=== PATIENT | female | born 1970 | race Two or more races ===

== ENCOUNTER 2017-12-06 08:55 | Day surgery (SDC) | payer OTHER, SELFPAY ==
[2017-12-04 08:08] LABS: International Normalized Ratio 0.9; Prothrombin Time (Protime)PT. 12.1 SECONDS (11.7-14.9)
[2017-12-04 08:09] LABS: Partial Thromboplast Time 25.8 Seconds (24.1-36.2)
[2017-12-04 08:21] LABS: Hematocrit 45.3 % (37-47); Mean Corp Hgb Conc 33.1 g/gl (32-36); Mean Corpuscular Hgb 31.3 pg (27.0-32.0); Mean Corpuscular Volume 94.4 fL (81-99); Mean Platelet Vol. 9.9 fl (6.2-12.0); Platelet Count 296 K/mm3 (150-450); RBC Distribution Width CV 13.1 % (11.6-14.6); RBC Distribution Width SD 44.3 fl (35.1-43.9); White Blood Count 7.7 K/mm3 (4.4-11.0)
[2017-12-04 08:22] LABS: AST(SGOT) 18 U/L (15-37); Alanine Aminotransfer ALT/SGPT 31 U/L (13-56); Albumin, Serum 3.8 g/dL (3.2-5.0); Alkaline Phosphatase 73 U/L (45-117); Bilirubin, Direct 0.11 mg/dL (0.00-0.30); Globulin 3.8 g/dL (2.2-4.2); Protein, Total 7.6 g/dL (6.4-8.2)
[2017-12-04 08:24] LABS: Scan Indicated on CBC? Y/N NO
--- NOTE | 2017-12-04 16:45 | EKG12_ITS ---
Test Reason : PREOP Blood Pressure : / mmHG Vent. Rate : 065 BPM Atrial Rate : 065 BPM P-R Int : 196 ms QRS Dur : 092 ms QT Int : 396 ms P-R-T Axes : 029 062 052 degrees QTc Int : 411 ms Normal sinus rhythm Normal ECG Confirmed by NEHEMIAH SILVERIO, YONATHAN ([id number]), fashion editor KIRSTEN MORENO ([id number]) on 12/06/2017 2:03:22 PM Referred By: Dayne Bentley Confirmed By:YONATHAN CERNA MD
[2017-12-06 09:16] VITALS: BP 126/86; PULSE 78; RESP 16; TEMP 36.7; O2SAT 97; BMI 29.7
--- NOTE | 2017-12-06 10:50 | ETH_PTH ---
PATIENT: BRANDIE HURTADO LOC: [facility] [place] U#:[id number] AGE/SX: 47/F ROOM: RE12/06/[address]: Dr. Dayne Bentley MD : 1970 BED: DIS: 12/06/2017 SPEC #: [id number] RECD: 12/06/17 15:51 STATUS: ROCK PAMELA #: [id number] MADIHA: 12/06/17 10:[address]: Dayne Bentley DEPT: SURGICAL PATHOLOGY RECD BY: Lili Newsome ENTERED: 12/09/17 09:32 SP TYPE: ETH TISS OTHR DR: FELA Casiano Tissues: A - Ethmoid sinus, NOS B - Ethmoid sinus, NOS Procedures: Decalcification bone/plaque Surgery Specimen Level IV HEADER OPERATION: Ethmoidectomy, antrostomy, submucous resection inferior turbinates PRE-OP DIAGNOSIS: Chronic ethmoidal sinusitis, incompetence of nasal valve, hypertrophy nasal turbinates TISSUE SUBMITTED: A ? Right sinus contents, B ? Left sinus contents MICROSCOPIC DIAGNOSIS A. Right sinus contents: Fragments of respiratory mucosa with chronic inflammation and bone. B. Left sinus contents: Fragments of respiratory mucosa with chronic inflammation and bone. BUCK:raven 12/12/17 MICROSCOPIC DESCRIPTION Slides are reviewed. GROSS DESCRIPTION A - Received in fixative is one container labeled with the patient's name and designated right sinus contents. The specimen consists of multiple fragments of hemorrhagic soft tissue mixed with fragments of bone that in aggregate measure 5 x 3 x 0.3 cm. The entire specimen is submitted in two cassettes after decalcification. B - Received in fixative is one container labeled with the patient's name and designated left sinus contents. The specimen consists of multiple fragments of hemorrhagic soft tissue mixed with possible fragments of bone that in aggregate measure 2.5 x 1.5 x 0.2 cm. The entire specimen is submitted in one cassette after decalcification. / BUCK:raven 12/09/17 TC:3 CPT: 87419 x2, 35307 x2
[2017-12-06] MEDS: Lidocaine 4% 50 ML Bottle (11:40)
[2017-12-06] MEDS: Oxymetazoline 0.05% 1 SPRAY SPRAY.BTL 15 SPRAY (11:40)
[2017-12-06] MEDS: Bacitracin 500 UNITS/GM PACKET (12:52)
[2017-12-06 13:07] VITALS: BP 124/82; BP 126/86; PULSE 88; RESP 18; TEMP 36.5; O2SAT 94
--- NOTE | 2017-12-06 13:08 | OP.PCM_ITS ---
Problem List (1) Chronic maxillary sinusitis Status: Chronic (2) Chronic ethmoidal sinusitis Status: Chronic (3) Hypertrophy of both inferior nasal turbinates Status: Chronic Report of Operation Date of Procedure: 12/06/17 Pre-Operative Diagnosis: Chronic sinusitis, hypertophy of inferior nasal turbinates Post-Operative Diagnosis: same Surgery/Procedure Performed:: Bilateral endoscopic total ethmoidectomy, maxillary antrostomies, submucous resection of inferior nasal turbinates Description of Surgical Findings:: Cathy is a 47-year-old female presents evaluation of chronic sinusitis and nasal obstruction. Examination showed hypertrophy inferior nasal turbinates as well as narrowing of the nasal valve with some collapse and CT scan confirmed chronic ethmoid and maxillary sinus changes and the above procedure was offered in hopes of alleviation of these complaints and she was eager to proceed. The risks, alternatives, potential benefits, and complications were discussed at length and any questions answered to the patient and/or caregiver's satisfaction. Witnessed informed consent was obtained in the office, and the patient and/or caregiver was agreeable to proceed. Procedure went as follows: The patient was identified in the preoperative holding and brought to the operating room, was placed under general anesthesia and intubated. When appropriate anesthesia was obtained, the navigational head gear was placed and confirmed to be operational in accordance with the underground supervisor's directions. Pledgets soaked in a 50-50 mixture of oxymetazoline and 4% topical lidocaine were placed to decongest the nasal mucosa. These were then removed and beginning on the left side using a 0? endoscope the nasal cavity examined. The insertion of the middle turbinate and uncinate process was then injected with 1% lidocaine with 100,000 epinephrine for a 2 cc total, and a similar injection was then carried on the contralateral side. Upon returning to the left side the middle turbinate was medialized with a Converse elevator. This allowed examination of the maxillary sinus ostia which is then probed with a double ball seeker. The uncinate process process was then outfractured with a J curette and transected with a backbiting forceps. This was then removed with the microdebrider creating a wide maxillary antrostomy. The ethmoid bulla was then entered and total ethmoidectomy was then carried out working posteriorly to anterior. Any polyps, scar, and mucous secretions were removed. Pledgets soaked in oxymetazoline were then placed for hemostasis and attention turned to the contralateral side. Similar procedure and findings were then carried out. Floseal hemostatic agent was then applied. Attention was then turned to the inferior nasal turbinates. Anterior aspect of the inferior turbinate was then injected with 1% lidocaine with 100,000 epinephrine for a total of 1 cc bilaterally and then beginning on the left side a 15 blade scalpel used to create a stab incision in the anterior aspect of the turbinate. A caudal elevator was then used to elevate a submucosal plane. Using the microdebrider the anterior bony intervening submucosal was then removed resulting in excellent reduction of the inferior turbinate. Similar procedure was then completed on the contralateral side. Alva splints were then applied after cutting with bacitracin ointment and secured to the columella with a single 3-0 Prolene suture. An NG tube was then placed to decompress the stomach and the patient returned to anesthesia, revived and extubated having tolerated the procedure well. Type of Anesthesia:: General Anesthesiologist: Dayne Corbin Special Medications: none Specimen's removed: sinus and inferior nasal turbinate contents Drains: none Estimated Blood Loss (mL): 200 mL Fluids Replaced: 1100 mL Grafts/Implants Used: Alva splints - Complications none - Admit VTE Documentation VTE Present on Admission: No VTE Mechan Device Prophylaxis: SCD's VTE Pharm Prophylaxis ordered?: No
--- NOTE | 2017-12-06 13:09 | DCINST_ITS ---
- Discharge Diagnoses Current Active Problems: Current Active and Chronic Problems Chronic maxillary sinusitis (Chronic) Chronic ethmoidal sinusitis (Chronic) Hypertrophy of both inferior nasal turbinates (Chronic) You will use the following diet at home:: Regular Discharge Activity: Return to Normal Activity, May not drive while taking narcotic pain medications. Call your doctor if your incision/area has: Continuous Slow Oozing, Sudden Increased Bleeding Call your doctor if you observe: Fever of 101 or Higher, Uncontrolled pain Allergies/Adverse Reactions: Allergies celecoxib [From Celebrex] Allergy (Verified 12/02/17 14:22) Rash Penicillins [PCN] Allergy (Verified 12/02/17 14:22) Rash sulfamethoxazole [From Bactrim] Allergy (Verified 12/02/17 14:22) Other trimethoprim [From Bactrim] Allergy (Verified 12/02/17 14:22) Other Medications to take at Discharge Oxycodone HCl/Acetaminophen [Percocet 10-325 mg Tablet] 1 tablet PO Q6H PRN PRN 05/13/17 Primary Care Physician: Wing Gomez PA [Primary Care Provider] - Test Results: Test results from this visit will be discussed in further detail at your follow- up appointment, if applicable. Please Follow Up With: Dayne Bentley MD When: 5 days
[2017-12-06 13:15] VITALS: BP 125/79; BP 126/86; PULSE 79; RESP 18; O2SAT 95
[2017-12-06 13:30] VITALS: BP 121/81; BP 126/86; PULSE 79; RESP 18; O2SAT 94
[2017-12-06 13:42] VITALS: BP 126/77; BP 126/86; PULSE 72; RESP 18; TEMP 36.5; O2SAT 95
[2017-12-06 14:12] VITALS: BP 126/81; BP 126/86; PULSE 72; RESP 18; TEMP 37.4; O2SAT 99
== END 2017-12-06 14:23 | disposition home or self-care (01) ==
LOC: SDC 08:55 → AC 08:56
PROVIDERS: Family Provider Physician Assistant; PCP Physician Assistant; Visit Provider Otolaryngology
PROC: (CPT 30140; principal; 2017-12-06 10:35)
DX: J32.0 Chronic maxillary sinusitis (principal); J32.2 Chronic ethmoidal sinusitis; J34.3 Hypertrophy of nasal turbinates; Z87.891 Personal history of nicotine dependence; R42 Dizziness and giddiness; F17.200 Nicotine dependence, unspecified, uncomplicated; J34.89 Other specified disorders of nose and nasal sinuses
CPT/HCPCS: 30140; 31255; 31256; 36415; 80076; 85027; 85610; 85730; 87086; 87088; 88305; 88311; 93005; J7120; J2405

== ENCOUNTER → 2018-02-20 16:30 | Outpatient (CLI) | payer OTHER, SELFPAY ==
--- NOTE | 2018-02-20 16:38 | BI_ITS ---
MAMMOGRAPHY - BILATERAL SCREENING REASON FOR EXAM: Female, 47 years old. Routine annual screening examination. PERTINENT HISTORY: Non-contributory. TECHNIQUE: Digital bilateral breast felix (3D mammographic acquisition) in the CC and MLO projections. 2-D mediolateral oblique (MLO) and craniocaudad (CC) views of both breasts were obtained. CAD: Full Field Digital Mammography with Computer Added Detection was performed. COMPARISON: Comparison is made with prior examination dated July 13, 2015. FINDINGS: Breast Composition: There are scattered areas of fibroglandular density. There are no dominant masses or suspicious calcifications. No other significant abnormalities are identified. There has been no significant change since the prior study. BI/SCREENING MAMM (CAD), BILAT IMPRESSION: Stable bilateral screening mammogram. Yearly follow-up mammogram recommended. (A) ASSESSMENT CATEGORY: BIRADS Category 1: Negative. A letter regarding these results will be sent to the patient by the facility within 30 days. Approximately 10% of breast cancers are not detected by mammography. A normal mammogram should not delay biopsy of a clinically suspicious abnormality. [id number] Electronically Signed: Solo Martinez MD at 7:58 EST Tel [phone], Service support ,
== END ==
PROVIDERS: Family Provider Physician Assistant; PCP Physician Assistant
DX: Z12.31 Encounter for screening mammogram for malignant neoplasm of breast (principal)
CPT/HCPCS: 77063; 77067

== ENCOUNTER 2018-05-08 13:26 | Emergency (ER) | payer OTHER, SELFPAY ==
[2018-05-08 13:27] VITALS: BP 124/79; PULSE 84; RESP 14; TEMP 37.2; O2SAT 98; BMI 29.0
--- NOTE | 2018-05-08 13:45 | RAD_ITS ---
STUDY: X-RAY - LEFT RADIUS AND ULNA REASON FOR EXAM: Female, 47 years old. Pain secondary to a fall. TECHNIQUE: 2 view(s) of the forearm. COMPARISON: None. FINDINGS: There is no demonstrated soft tissue swelling. Normal visualized radius. Normal visualized ulna. RAD/Forearm 2 Views IMPRESSION: Normal x-ray examination of the radius and ulna. Electronically Signed: Solo Martinez MD at 14:18 EST Tel [phone], Service support ,
[2018-05-08] MEDS: Naproxen 500 MG Tablet PO (13:53)
--- NOTE | 2018-05-08 14:55 | ED.DCSUM_ITS ---
- ER Visit Summary Date of Service: 05/08/18 Chief Complaint: Left forearm pain History of Present Illness: The patient is a [address] Gomez in [place]. She reports that she was going down the steps at work today and lost her footing. She slipped and caught herself with her left arm. She hit this on the banister. She reports she has pain that is 8 out of 10 severity. She reports she has left-sided neck pain is 7 out of 10 severity. She is left-hand dominant. Patient reports that she did not fall. No blow to the head or loss of consciousness. No back, shoulder, or hip pain. Physical Examination: Vitals: Stable. Afebrile. Mild tenderness to palpation of the paraspinous muscular on the left and the left trapezius muscle. Neck: No vertebral tenderness. Full ROM without difficulty. Cleared by NEXUS criteria. Back: No vertebral tenderness. General: A&O x 3. NAD. Cardiovascular exam: Regular rate and rhythm, no murmur, rub or gallop. Respiratory exam: Chest nontender. No crepitus. Clear to auscultation bilaterally. No wheezes or stridor. Abdominal exam: Soft, nontender, nondistended, normal bowel sounds. No pain in RUQ or LUQ specifically. No peritoneal signs. Extremity: Contusion over the lateral portion of her distal left forearm. Moderate diffuse translation of her entire forearm. Normal range of motion, but this does increase her pain. 2+ radial pulse. Test Results: Left forearm x-ray is negative. Emergency Department Course and Treatment: Patient was placed in a sling treated with naproxen. Treatment Plan: Patient will be discharged with limited use of her left arm work restrictions. She is in pain management already has opiate-based medications at home. She is instructed to add Tylenol and/or ibuprofen for pain. Follow-up with [facility] care in 1 week for another exam. Return to the emergency department for any worsening symptoms. Disposition: To home in improved and stable condition. Impression: 1. Contusion left forearm. 2. Cervical strain. This note was generated with [employer] software. It may contain incorrect words, spelling, and punctuation that were not noted in review of the chart prior to signing ED Disposition - Plan for ED Patient: Chief Complaint: Upper Extremity Injury Instructions: ED Contusion Upper Ext Referrals: Corporate,[facility] [GROUP OF PHYSICIANS] - 1 Week
== END 2018-05-08 15:27 | disposition home or self-care (01) ==
PROVIDERS: Emergency Provider Emergency Medicine; Family Provider Physician Assistant; PCP Physician Assistant
DX: S50.12XA Contusion of left forearm, initial encounter (principal); S16.1XXA Strain of muscle, fascia and tendon at neck level, initial encounter; W01.198A Fall on same level from slipping, tripping and stumbling with subsequent striking against other object, initial encounter; Y93.9 Activity, unspecified; Y92.9 Unspecified place or not applicable; Z87.891 Personal history of nicotine dependence
CPT/HCPCS: 73090; 99283

== ENCOUNTER → 2018-05-15 16:55 | Outpatient (CLI) | payer OTHER, SELFPAY ==
[2018-05-09 13:17] VITALS: BMI 29.0
--- NOTE | 2018-05-15 18:18 | MRI_ITS ---
STUDY: MRI CERVICAL SPINE WITHOUT CONTRAST REASON FOR EXAM: Female, 47 years old. Patient fell TECHNIQUE: Standardized fat and water weighted pulse sequences were obtained in the sagittal and axial planes. COMPARISON: None FINDINGS: There is no tonsillar ectopia. There is a normal cervicomedullary junction. The cervical spinal cord is of normal morphology and signal intensity with no myelomalacia, contusion or myelopathy. Cervical spine demonstrates a normal lordotic curvature with no acute fractures or dislocations and no abnormal marrow infiltrative processes. The disc spaces are of normal height and signal intensity. The craniovertebral junction is normal. The tectorial membrane is normal. . C2-3: Normal endplates. Normal disc height, signal and morphology. Normal central canal and intervertebral neural foramina. C3-4: Normal endplates. Normal disc height, signal and morphology. Normal central canal and intervertebral neural foramina. C4-5: Normal endplates. Normal disc height, signal and morphology. Normal central canal and intervertebral neural foramina. Mild effacement of the CSF anterior to the cord C5-6: Normal endplates. Normal disc height, signal and morphology. Normal central canal and intervertebral neural foramina. C6-7: Normal endplates. Normal disc height, signal and morphology. Normal central canal and intervertebral neural foramina. C7-T1: Normal endplates. Normal disc height, signal and morphology. Normal central canal and intervertebral neural foramina. . MRI/Spine Cervical (Routine) IMPRESSION: The study is normal with no acute fractures or any abnormal marrow infiltrative processes. There is however mild effacement of the CSF anterior to the cord at the C4-C5 Electronically Signed: Stephon Benavidez MD at 6:39 EST Tel , Service support ,
--- OUTSIDE RECORDS SUMMARY | 2018-07-20 12:08 | XMS RPT_ITS | Summary of Care ---
:1970 Author Organization [facility] Address [address] [place] [address] Phone Care Team Providers Name Role Phone Danny Gomez Primary Care Provider Reason for Visit Reason Comments Other Encounter Details Date Type Department Care Team Description 05/12/2018 Telephone [facility] Danny Gomez PA [facility] [address] [place] [address] [place] [id number] Allergies Active Allergy Reactions Severity Noted Date Comments Celecoxib 07/04/2016 Penicillins 07/04/2016 as of this encounter Medications Prescription Sig. Disp. Refills Start Date End Date Status oxyCODONE-acetaminophen Take 1 tablet by Active 5-325 MG Tab per tablet mouth every 6 hours as needed. varenicline (CHANTIX) Take 1 tablet by 60 tablet 2 01/24/2018 Active 0.5 MG TabIndications: mouth 2 times Cigarette nicotine daily. dependence with nicotine-induced disorder nicotine 21 MG/24HR Place 1 patch on 30 patch 0 01/24/2018 Active Patch 24 HR skin every 24 patchIndications: hours. Cigarette nicotine dependence with nicotine-induced disorder Vortioxetine HBr Take 1 tablet by 90 tablet 0 01/24/2018 Active (TRINTELLIX) 20 MG mouth daily. TabIndications: Anxiety and depression as of this encounter Active Problems Problem Noted Date Impingement syndrome of shoulder, right 06/26/2017 AC (acromioclavicular) arthritis 06/26/2017 Depression Obesity Moderate tobacco use disorder Headache Social History Tobacco Use Types Packs/Day Years Used Date Current Every Day Smoker Cigarettes 0.25 Smokeless Tobacco: Never Used Alcohol Use Drinks/Week oz/Week Comments No Sex Assigned at Date Recorded Not on file as of this encounter Functional Status Functional Status Response Date of Assessment Are you deaf or do you have serious difficulty hearing? No 02/24/2018 Are you blind or do you have serious difficulty seeing, Yes 02/24/2018 even when wearing glasses? Do you have serious difficulty walking or climbing stairs Yes 02/24/2018 (5 years or older)? Do you have difficulty dressing or bathing (5 yrs or Yes 02/24/2018 older)? Because of a physical, mental, or emotional condition, do No 02/24/2018 you have difficulty doing errands alone such as visiting a doctor's office or shopping (5 yrs or older)? Cognitive Status Response Date of Assessment Because of a physical, mental, or emotional condition, do Yes 02/24/2018 you have serious difficulty concentrating, remembering, or making decisions (5 yrs or older)? as of this encounter Plan of Treatment Health Maintenance Due Date Last Done Comments HIV SCREENING DISCUSSION 07/25/1984 TETANUS 07/25/1989 TDAP (ADULT) 07/25/1990 PAP SMEAR DISCUSSION 07/25/1992 LIPID SCREENING 2011 MAMMOGRAM SCREENING DISCUSSION 2011 INFLUENZA VACCINE (#1) 2017 01/22/2017, 12/31/2015, 01/21/2015 as of this encounter
--- OUTSIDE RECORDS SUMMARY | 2018-07-20 12:08 | XMS RPT_ITS | Summary of Care ---
:1970 Author Organization [facility] Address [address] [place] [address] Care Team Providers Name Role Phone Danny Gomez PA-C Primary Care Provider Reason for Visit Reason Comments Pain wrist, arm, back, neck from fall Encounter Details Date Type Department Care Team Description 05/20/[address] [facility] Benny Carreon Encounter for long-term use of opiate analgesic (Primary Dx); Physicians Pain MD See Degeneration of intervertebral disc of cervical region Management [address] [place] [address] [place] [address] [phone] Allergies Active Allergy Reactions Severity Noted Date Comments Adhesive 01/10/2015 Celecoxib 01/10/2015 Penicillins 01/10/2015 Sulfa (Sulfonamide Antibiotics) Other (See Comments) 05/13/2017 Vancomycin 01/10/2015 as of this encounter Medications Medication Sig Dispensed Refills Start Date End Date Status traZODone (DESYREL) 50 Take 50 mg by 0 12/17/2014 Active MG tablet mouth nightly. amitriptyline (ELAVIL) Take 10 mg by 0 06/29/2015 Active 10 MG tablet mouth nightly. buPROPion (WELLBUTRIN Take 150 mg by 0 07/28/2015 Active SR) 150 MG 12 hr tablet mouth 2 (two) times a day. omeprazole (PRILOSEC) 40 0 07/15/2015 Active MG capsule SUMAtriptan (IMITREX) 25 0 06/29/2015 Active MG tablet CHANTIX CONTINUING MONTH 0 07/28/2015 Active BOX 1 mg tablet bisacodyl (DULCOLAX) 5 0 08/06/2015 Active mg EC tablet MAGNESIUM CITRATE 0 08/06/2015 Active solution GAVILYTE-N 420 gram SolR 0 08/06/2015 Active senna-docusate (SENNA-S) Take 1 tablet by 30 tablet 11 08/15/2015 Active 8.6-50 mg mouth daily. MOVANTIK 25 mg Tab 0 08/29/2015 Active nicotine (NICODERM CQ) PLACE 1 PATCH ON 0 02/24/2018 Active 21 mg/24 hr SKIN EVERY 24 HOURS vortioxetine Take 20 mg by 0 01/24/2018 Active (TRINTELLIX) 20 mg mouth . tablet oxyCODONE-acetaminophen Take 1 (one) 120 tablet 0 06/11/2018 Active (PERCOCET) 10-325 mg per tablet by mouth 9 tabletIndications: DDD 4 (four) times a (degenerative disc day 30 days disease), lumbar, m51.36 Start: Degeneration of 06/11/18. intervertebral disc of cervical region ibuprofen (ADVIL,MOTRIN) Take 1 (one) 90 tablet 11 05/02/2018 Active 800 MG tablet tablet (800 mg 0 total) by mouth 3 (three) times a day . tiZANidine (ZANAFLEX) 4 Take 1 (one) 90 capsule 2 05/15/2018 Active MG capsule capsule (4 mg 9 total) by mouth 3 (three) times a day as needed for muscle spasms . cilostazol (PLETAL) 100 Take one(1) 0 07/21/2002 Active MG tablet tablet daily. diltiazem (CARDIZEM CD) Take one(1) 0 07/21/2002 Active 240 MG 24 hr capsule capsule daily. levoFLOXacin (LEVAQUIN) 1 Unspecified 0 Active 500 MG tablet daily . ondansetron (ZOFRAN-ODT) Dissolve 4 mg on 0 05/12/2018 Active 4 MG disintegrating top of tongue tablet every 4 (four) hours as needed . ondansetron (ZOFRAN-ODT) dissolve 1 0 05/12/2018 Active 4 MG disintegrating tablet ON TONGUE tablet every 4 hours if needed for nausea methylPREDNISolone follow package 21 tablet 0 05/20/2018 Active (MEDROL DOSEPACK) 4 mg directions . tablet as of this encounter Active Problems Problem Noted Date Sacroiliac joint pain 12/27/2016 Chronic low back pain without sciatica 09/05/2016 Chronic left hip pain 05/23/2016 Left arm pain 08/05/2015 Cervical radicular pain 08/01/2015 Encounter for long-term use of opiate analgesic 06/13/2015 Coccygodynia 11/19/2014 Tobacco use 11/19/2014 DDD (degenerative disc disease), lumbar 06/29/2014 Degeneration of intervertebral disc of cervical region 10/03/2007 as of this encounter Social History Tobacco Use Types Packs/Day Years Used Date Former Smoker Cigarettes Smokeless Tobacco: Never Used Alcohol Use Drinks/Week oz/Week Comments No 0 Standard drinks or equivalent 0.0 Sex Assigned at Date Recorded Not on file Job Start Date Occupation Industry Not on file Not on file Not on file Travel History Travel Start Travel End No recent travel history available. as of this encounter Last Filed Vital Signs Vital Sign Reading Time Taken Blood Pressure 121/85 05/20/2018 3:15 PM EST Pulse - - Temperature - - Respiratory Rate - - Oxygen Saturation - - Inhaled Oxygen Concentration - - Weight 81.2 kg (179 lb) 05/20/2018 3:15 PM EST Height 167.6 cm (5' 6) 05/20/2018 3:15 PM EST Body Mass Index 28.89 05/20/2018 3:15 PM EST in this encounter Progress Notes Benny Carreon MD - 05/20/2018 3:56 PM EST Nam: Cathy Merino Age: 47 y.o. : 1970 Date: 05/20/2018 Provider: Benny Carreon MD Chief Complaint Patient presents with ??? Pain wrist, arm, back, neck from fall HISTORY OF PRESENT ILLNESS: Cathy Merino is a 47 y.o. female who presents complaining of pain in the neck, shoulders Left and arms Left. Current symptoms include: aching, dull, sharp and throbbing in character; 10/10 in severity. Symptoms have significantly worsened from the previous visit. Exacerbating factors identified by the patient are everything. Patient had fall and injuried her neck , left arm , barely able to lift her head. Analgesia: Patient has inadequate analgesia with the use of current opioid pain medication. Activities of Daily Living: Patient's activities of daily living and psychological functioning haveimproved sufficiently with use of the current opioid medication. Adverse Effects: Patient reports no adverse effects with use of the opioid pain medication. Aberrant Drug-Taking Behavior: Patient has demonstrated no aberrant drug taking behaviors with no deviation from prescription. Allergies Allergen Reactions ??? Adhesive ??? Celecoxib ??? Penicillins ??? Sulfa (Sulfonamide Antibiotics) Other (See Comments) ??? Vancomycin Current Outpatient Medications Medication Sig Dispense Refill ??? amitriptyline (ELAVIL) 10 MG tablet Take 10 mg by mouth nightly. 0 ??? bisacodyl (DULCOLAX) 5 mg EC tablet 0 ??? buPROPion (WELLBUTRIN SR) 150 MG 12 hr tablet Take 150 mg by mouth 2 (two) times a day. 0 ??? CHANTIX CONTINUING MONTH BOX 1 mg tablet 0 ??? cilostazol (PLETAL) 100 MG tablet Take one(1) tablet daily. ??? diltiazem (CARDIZEM CD) 240 MG 24 hr capsule Take one(1) capsule daily. ??? GAVILYTE-N 420 gram SolR 0 ??? ibuprofen (ADVIL,MOTRIN) 800 MG tablet Take 1 (one) tablet (800 mg total) by mouth 3 (three) times a day . 90 tablet 11 ??? levoFLOXacin (LEVAQUIN) 500 MG tablet 1 Unspecified daily . ??? MAGNESIUM CITRATE solution 0 ??? MOVANTIK 25 mg Tab ??? nicotine (NICODERM CQ) 21 mg/[address] 1 PATCH ON SKIN EVERY 24 HOURS 0 ??? omeprazole (PRILOSEC) 40 MG capsule 0 ??? ondansetron (ZOFRAN-ODT) 4 MG disintegrating tablet Dissolve 4 mg on top of tongue every 4 (four) hours as needed . ??? ondansetron (ZOFRAN-ODT) 4 MG disintegrating tablet dissolve 1 tablet ON TONGUE every 4 hours ifneeded for nausea 0 ??? [START ON 06/11/2018] oxyCODONE-acetaminophen (PERCOCET) 10-325 mg per tablet Take 1 (one) tabletby mouth 4 (four) times a day 30 days m51.36 Start: 06/11/18. 120 tablet 0 ??? SUMAtriptan (IMITREX) 25 MG tablet 0 ??? tiZANidine (ZANAFLEX) 4 MG capsule Take 1 (one) capsule (4 mg total) by mouth 3 (three) times a day as needed for muscle spasms . 90 capsule 2 ??? traZODone (DESYREL) 50 MG tablet Take 50 mg by mouth nightly. 0 ??? vortioxetine (TRINTELLIX) 20 mg tablet Take 20 mg by mouth . ??? senna-docusate (SENNA-S) 8.6-50 mg Take 1 tablet by mouth daily. 30 tablet 11 No current facility-administered medications for this visit. Past Medical History: Diagnosis Date ??? DDD (degenerative disc disease) neck and back ??? Miscarriage Single Past Surgical History: Procedure Laterality Date ??? BACK SURGERY ??? CATARACT EXT/ECCE 2009 ??? SECTION, CLASSIC 1993 ??? CHOLECYSTECTOMY 2011 ??? COCCYGECTOMY 11/23/[address] Ly ??? EYE SURGERY Left 2011 to attach left eye and relieve pressure ??? EYE SURGERY Right 2012 eye repair ??? LAMINECTOMY [address] Maher ??? OTHER SURGICAL HISTORY 2007 Fusion with fixation L4-L5-S ??? OTHER SURGICAL HISTORY 10/11/2012 Decompression Laminectomy at L3-L4, with placement of interbody device ??? POSTEROLATERAL FUSION at L3-L4 with removal and reinsertion of pedicle fixation ??? TOE SURGERY Left 08/31/2015 PLATES PLACED IN PHALANGES ??? TONSILLECTOMY 1975 ??? TOTAL ABDOMINAL HYSTERECTOMY W/ BILATERAL SALPINGOOPHORECTOMY 02/21/2010 Social History Socioeconomic History ??? Marital status: Spouse name: Not on file ??? Number of children: Not on file ??? Years of education: Not on file ??? Highest education level: Not on file Social Needs ??? Financial resource strain: Not on file ??? Food insecurity - worry: Not on file ??? Food insecurity - inability: Not on file ??? Transportation needs - medical: Not on file ??? Transportation needs - non-medical: Not on file Occupational History ??? Not on file Tobacco Use ??? Smoking status: Former Smoker Types: Cigarettes ??? Smokeless tobacco: Never Used Substance and Sexual Activity ??? Alcohol use: No Alcohol/week: 0.0 oz ??? Drug use: No ??? Sexual activity: Not on file Other Topics Concern ??? Not on file Social History Narrative ??? Not on file Family History Problem Relation Age of Onset ??? Psoriasis Cousin ??? Thyroid disease Other Aunt ??? Arthritis Other Aunt Social History Substance and Sexual Activity Alcohol Use No ??? Alcohol/week: 0.0 oz Social History Substance and Sexual Activity Drug Use No Social History Tobacco Use Smoking Status Former Smoker ??? Types: Cigarettes Smokeless Tobacco Never Used Review of Systems B/B control:0 - Normal Antalgic Physical Exam Ortho Exam 47 y.o. BP 121/85 Ht 5' 6 Wt 81.2 kg (179 lb) BMI 28.89 kg/m?? SNOMED CT(R) 1. Encounter for long-term use of opiate analgesic ADMISSION STATUSES 2. Degeneration of intervertebral disc of cervical region DEGENERATION OF CERVICAL INTERVERTEBRAL DISC ASSESSMENT/PLAN: needs to find neurologist , I cannot see any problems on XRay will add Medrol Dose-Pack , needs to work through [employer] system Consistent OARRS/NARxCHECK Report Received and Assessed: 05/02/18 Date controlled substance agreement signed: 05/20/18 (AP) Date of last drug screen: 01/06/18 (AP) in this encounter Plan of Treatment Upcoming Encounters Date Type Specialty Care Team Description 06/02/2018 Office Visit Spine Surgery Aries Ly MD [address] [place] [address] 07/03/2018 Office Visit Pain Medicine Benny Carreon MD [address] [facility] [place] [address] Health Maintenance Due Date Last Done Comments PAP SMEAR 07/05/2017 07/05/2014, 07/05/2014, 07/05/2014 SEQUENTIAL INFLUENZA VACCINE (#1) 2017 TETANUS EVERY 10 YR 02/13/2027 02/13/2017, 01/28/2017 as of this encounter Visit Diagnoses Diagnosis Encounter for long-term use of opiate analgesic - Primary Encounter for long-term (current) use of other medications Degeneration of intervertebral disc of cervical region in this encounter (Home) [place] [address] as of this encounter Advance Directives Patient has advance care planning documents on file. For more information, please contact:[address] [phone]
--- OUTSIDE RECORDS SUMMARY | 2018-07-20 12:08 | XMS RPT_ITS | Summary of Care ---
:1970 Author Organization [facility] Address [address] [place] [address] Phone Care Team Providers Name Role Phone Danny Gomez Primary Care Provider Reason for Visit Reason Comments Fall Pt presents with left arm pain s/p fall on , states she was seen after the fall, wearing sling at arrival. Also c/o headache. States she is already under pain management as well. Encounter Details Date Type Department Care Team Description 05/12/2018 Emergency [facility] Emergency Roverto Mckay MD Department [address] [facility] [address] [place] [address] [place] [address] [phone] Allergies Active Allergy Reactions Severity Noted Date [...] MG mouth daily. TabIndications: Anxiety and depression ondansetron 4 MG Tab Take 1 tablet by 10 tablet 0 05/12/2018 Active Dispersible tablet mouth every 4 hours as needed for Nausea. Place on tongue as of this encounter Active Problems Problem Noted Date Impingement syndrome of shoulder, right 06/26/2017 AC (acromioclavicular) arthritis 06/26/2017 Depression Obesity Moderate tobacco use disorder Headache Social History Tobacco Use Types Packs/Day Years Used Date Current Every Day Smoker Cigarettes 0.25 Smokeless Tobacco: Never Used Alcohol Use Drinks/Week oz/Week Comments No Sex Assigned at Date Recorded Not on file as of this encounter Last Filed Vital Signs Vital Sign Reading Time Taken Blood Pressure 124/79 05/12/2018 10:15 AM EST Pulse 78 05/12/2018 10:15 AM EST Temperature 35.7 ??C (96.2 ??F) 05/12/2018 10:15 AM EST Respiratory Rate 16 05/12/2018 10:15 AM EST Oxygen Saturation 97% 05/12/2018 10:15 AM EST Inhaled Oxygen Concentration - - Weight - - Height 167.6 cm (5' 6) 05/12/2018 10:17 AM EST Body Mass Index - - in this encounter Functional Status Functional Status Response [...] yrs or older)? as of this encounter Discharge Instructions Roverto Mckay MD - 05/12/2018Call [facility] as soon as you leave the ER. . I spoke with him and they are expecting your call. They have already started the process to get your MRI ordered. It is very important that you follow-up with them and get your testing performed. As you know, I cannot change or add to your pain medications. He will have to speak your primary care provider, the providers at [facility], or your pain management doctor about that. The following attachments cannot be sent through Care Everywhere.R.I.C.E. ([place])Neck Sprain or Strain ([place])in this encounter Plan of Treatment Health Maintenance Due Date Last Done Comments HIV SCREENING DISCUSSION 07/25/1984 TETANUS 07/25/1989 TDAP (ADULT) 07/25/1990 PAP SMEAR DISCUSSION 07/25/1992 LIPID SCREENING 2011 MAMMOGRAM SCREENING DISCUSSION 2011 INFLUENZA VACCINE (#1) 2017 01/22/2017, 12/31/2015, 01/21/2015 as of this encounter Visit Diagnoses Diagnosis Left arm pain - Primary Pain in limb Strain of cervical portion of left trapezius muscle Fall, subsequent encounter Administered Medications Inactive Administered Medications - up to 3 most recent administrations Medication Order MAR Action Action Date Dose Rate Site ondansetron (ZOFRAN-ODT) disintegrating Given 05/12/2018 11:11 EST 4 mg tablet 4 mg 4 mg, Oral, ONCE, 1 dose, 05/12/18 at 1145 in this encounter
--- OUTSIDE RECORDS SUMMARY | 2018-07-20 12:08 | XMS RPT_ITS | Summary of Care ---
:1970 Author Organization [facility] Address [address] [place] [address] Care Team Providers Name Role Phone Danny Gomez PA-C Primary Care Provider Reason for Visit Reason Comments Back Pain Neck Pain Encounter Details Date Type Department Care Team Description 03/11/2018 Office Visit [facility] Benny Carreon Encounter for long-term use of opiate analgesic (Primary Dx); Physicians Annette Cui MD DDD (degenerative disc disease), lumbar; Management [address] [place] [address] Degeneration of intervertebral disc of cervical region [address] [place] [id number] [place] [id number] [phone] Allergies Active Allergy Reactions Severity Noted Date Comments Adhesive 01/10/2015 Celecoxib 01/10/2015 Penicillins 01/10/2015 Sulfa (Sulfonamide Antibiotics) Other (See Comments) 05/13/2017 Vancomycin 01/10/2015 as of this encounter Medications Prescription Sig. Disp. Refills Start Date End Date Status traZODone (DESYREL) Take 50 mg by 0 12/17/2014 Active 50 MG tablet mouth nightly. amitriptyline Take 10 mg by 0 06/29/2015 Active (ELAVIL) 10 MG mouth nightly. tablet buPROPion Take 150 mg by 0 07/28/2015 Active (WELLBUTRIN SR) 150 mouth 2 (two) MG 12 hr tablet times a day. omeprazole 0 07/15/2015 Active (PRILOSEC) 40 MG capsule SUMAtriptan 0 06/29/2015 Active (IMITREX) 25 MG tablet CHANTIX CONTINUING 0 07/28/2015 Active MONTH BOX 1 mg tablet bisacodyl (DULCOLAX) 0 08/06/2015 Active 5 mg EC tablet MAGNESIUM CITRATE 0 08/06/2015 Active solution GAVILYTE-N 420 gram 0 08/06/2015 Active SolR senna-docusate Take 1 tablet 30 tablet 11 08/15/2015 Active (SENNA-S) 8.6-50 mg by mouth daily. MOVANTIK 25 mg Tab 08/29/2015 Active ibuprofen Take 1 (one) 90 tablet 11 11/07/2016 Active (ADVIL,MOTRIN) 800 tablet (800 mg MG tablet total) by mouth 3 (three) times a day. tiZANidine Take 1 (one) 90 capsule 11 11/07/2016 Active (ZANAFLEX) 4 MG capsule (4 mg capsule total) by mouth 3 (three) times a day. levoFLOXacin Levaquin 500 mg tablet Active (LEVAQUIN) 500 MG Take 1 tablet every 24 hours by oral route for 21 days. tablet tiZANidine 4 mg. 05/13/2017 Active (ZANAFLEX) 4 MG tablet nicotine (NICODERM PLACE 1 PATCH 0 02/24/2018 Active CQ) 21 mg/24 hr ON SKIN EVERY 24 HOURS vortioxetine Take 20 mg by 01/24/2018 Active (TRINTELLIX) 20 mg mouth . tablet oxyCODONE-acetaminop Take 1 (one) 120 tablet 0 04/12/2018 Active hen (PERCOCET) tablet by 9 10-325 mg per mouth 4 (four) tabletIndications: times a day 30 DDD (degenerative days Start: disc disease), 04/12/18. lumbar, Degeneration of intervertebral disc of cervical region oxyCODONE-acetaminop Take 1 (one) 120 tablet 0 02/11/2018 Discontinued hen (PERCOCET) tablet by 8 10-325 mg per mouth 4 (four) tabletIndications: times a day 30 DDD (degenerative days. disc disease), lumbar, Degeneration of intervertebral disc of cervical region oxyCODONE-acetaminop Take 1 (one) 120 tablet 0 03/13/2018 Discontinued hen (PERCOCET) tablet by 8 10-325 mg per mouth 4 (four) tabletIndications: times a day 30 DDD (degenerative days Start: disc disease), 11/15/18. lumbar, Degeneration of intervertebral disc of cervical region as of this encounter Active Problems Problem Noted Date Sacroiliac joint pain 12/27/2016 Chronic low back pain without sciatica 09/05/2016 Chronic left hip pain 05/23/2016 Left arm pain 08/05/2015 Cervical radicular pain 08/01/2015 Encounter for long-term use of opiate analgesic 06/13/2015 Coccygodynia 11/19/2014 Tobacco use 11/19/2014 DDD (degenerative disc disease), lumbar 06/29/2014 Degeneration of intervertebral disc of cervical region 10/03/2007 Social History Tobacco Use Types Packs/Day Years Used Date Former Smoker Cigarettes Smokeless Tobacco: Never Used Alcohol Use Drinks/Week oz/Week Comments No 0 Standard drinks or equivalent 0.0 Sex Assigned at Date Recorded Not on file as of this encounter Last Filed Vital Signs Vital Sign Reading Time Taken Blood Pressure 130/77 03/11/2018 7:58 AM EST Pulse - - Temperature - - Respiratory Rate - - Oxygen Saturation - - Inhaled Oxygen Concentration - - Weight 81.2 kg (179 lb) 03/11/2018 7:58 AM EST Height 167.6 cm (5' 6) 03/11/2018 7:58 AM EST Body Mass Index 28.89 03/11/2018 7:58 AM EST in this encounter Progress Notes Benny Carreon MD - 03/11/2018 8:10 AM ESTFormatting of this note may be different from the original. Nam: Cathy Merino Age: 47 y.o. : 1970 Date: 03/11/2018 Provider: Benny Carreon MD Chief Complaint Patient presents with ??? Back Pain ??? Neck Pain HISTORY OF PRESENT ILLNESS: Cathy Merino is a 47 y.o. female who presents complaining of pain in the neck, shoulders Bilateral, low back, legs Bilateral and feet Bilateral. Current symptoms include: aching and tingling in character; 7/10 in severity. Symptoms have not changed from the previous visit. Exacerbating factors i dentified by the patient are bending backwards, bending forwards, increased intrathoracic pressure (cough, sneeze, etc.), standing and walking. Asking to order MRI L/spine. Analgesia: Patient has adequate analgesia with the use of current opioid [...] Other (See Comments) ??? Vancomycin Current Outpatient Prescriptions Medication Sig Dispense Refill ??? vortioxetine (TRINTELLIX) 20 mg tablet Take 20 mg by mouth . ??? amitriptyline (ELAVIL) 10 MG tablet Take 10 mg by mouth nightly. 0 ??? bisacodyl (DULCOLAX) 5 mg EC tablet 0 ??? buPROPion (WELLBUTRIN SR) 150 MG 12 hr tablet Take 150 mg by mouth 2 (two) times a day. 0 ??? CHANTIX CONTINUING MONTH BOX 1 mg tablet 0 ??? GAVILYTE-N 420 gram SolR 0 ??? ibuprofen (ADVIL,MOTRIN) 800 MG tablet Take 1 (one) tablet (800 mg total) by mouth 3 (three) times a day. 90 tablet 11 ??? levoFLOXacin (LEVAQUIN) 500 MG tablet Levaquin 500 mg tablet Take 1 tablet every 24 hours by oral route for 21 days. ??? MAGNESIUM CITRATE solution 0 ??? MOVANTIK 25 mg Tab ??? nicotine (NICODERM CQ) 21 mg/[address] 1 PATCH ON SKIN EVERY 24 HOURS 0 ??? omeprazole (PRILOSEC) 40 MG capsule 0 ??? [START ON 04/12/2018] oxyCODONE-acetaminophen (PERCOCET) 10-325 mg per tablet Take 1 (one) tablet by mouth 4 (four) times a day 30 days Start: 04/12/18. 120 tablet 0 ??? senna-docusate (SENNA-S) 8.6-50 mg Take 1 tablet by mouth daily. 30 tablet 11 ??? SUMAtriptan (IMITREX) 25 MG tablet 0 ??? tiZANidine (ZANAFLEX) 4 MG capsule Take 1 (one) capsule (4 mg total) by mouth 3 (three) times a day. 90 capsule 11 ??? tiZANidine (ZANAFLEX) 4 MG tablet 4 mg. ??? traZODone (DESYREL) 50 MG tablet Take 50 mg by mouth nightly. 0 No current facility-administered medications for this visit. [...] per Dr. Maher ??? OTHER SURGICAL HISTORY 2006 Fusion with fixation L4-L5-S ??? OTHER SURGICAL HISTORY 10/11/2012 Decompression Laminectomy at L3-L4, with placement of interbody device ??? POSTEROLATERAL FUSION at L3-L4 with removal and reinsertion of pedicle fixation ??? TOE SURGERY Left 08/31/2015 PLATES PLACED IN PHALANGES ??? TONSILLECTOMY 1974 ??? TOTAL ABDOMINAL HYSTERECTOMY W/ BILATERAL SALPINGOOPHORECTOMY 02/21/2010 Social History Social History ??? Marital status: Spouse name: N/A ??? Number of children: N/A ??? Years of education: N/A Occupational History ??? Not on file. Social History Main Topics ??? Smoking status: Former Smoker Types: Cigarettes ??? Smokeless tobacco: Never Used ??? Alcohol use No ??? Drug use: No ??? Sexual activity: Not on file Other Topics Concern ??? Not on file Social History Narrative ??? No narrative on file Family History Problem Relation Age of Onset ??? Psoriasis Cousin ??? Thyroid disease Other Aunt ??? Arthritis Other Aunt History Alcohol Use No History Drug Use No History Smoking Status ??? Former Smoker ??? Types: Cigarettes Smokeless Tobacco ??? Never Used Review of Systems Constitutional: Negative for activity change and appetite change. HENT: Negative for dental problem, hearing loss, sinus pressure and trouble swallowing. Eyes: Negative for visual disturbance. Respiratory: Negative for cough. Cardiovascular: Negative for chest pain and leg swelling. Gastrointestinal: Negative for constipation. Musculoskeletal: Positive for arthralgias, back pain and gait problem. Psychiatric/Behavioral: The patient is nervous/anxious. B/B control:0 - Normal Walking normally Physical Exam Constitutional: She is oriented to person, place, and time. She appears well- developed and well-nourished. HENT: Head: Normocephalic and atraumatic. Neck: Spinous process tenderness and muscular tenderness present. Neck rigidity present. Decreased range of motion present. Cardiovascular: Normal rate and regular rhythm. Musculoskeletal: She exhibits tenderness. Neurological: She is alert and oriented to person, place, and time. Skin: Skin is warm and dry. Psychiatric: Her behavior is normal. Judgment and thought content normal. Ortho Exam 47 y.o. BP 130/77 Ht 5' 6 Wt 81.2 kg (179 lb) BMI 28.89 kg/m?? SNOMED CT(R) 1. Encounter for long-term use of opiate analgesic ADMISSION STATUSES 2. DDD (degenerative disc disease), lumbar DEGENERATION OF LUMBAR INTERVERTEBRAL DISC oxyCODONE-acetaminophen (PERCOCET) 10-325 mg per tablet DISCONTINUED: oxyCODONE-acetaminophen (PERCOCET) 10-325 mg per tablet 3. Degeneration of intervertebral disc of cervical region DEGENERATION OF CERVICAL INTERVERTEBRAL DISC oxyCODONE-acetaminophen (PERCOCET) 10-325 mg per tablet DISCONTINUED: oxyCODONE-acetaminophen (PERCOCET) 10-325 mg per tablet ASSESSMENT/PLAN: meds refill, f/u 2 month , XRay L/spine Consistent OARRS/NARxCHECK Report Received and Assessed: 03/11/18 Date controlled substance agreement signed: 07/11/17 (AP) Date of last drug screen: 01/06/18 (AP) in this encounter Plan of Treatment Upcoming Encounters Date Type Specialty Care Team Description 04/04/2018 Office Visit Dentistry 05/09/2018 Office Visit Pain Medicine ProBenny gonzales MD [facility] [place] [address] [phone] Health Maintenance Due Date Last Done Comments PAP SMEAR 07/05/2017 07/05/2014, 07/05/2014, 07/05/2014 SEQUENTIAL INFLUENZA VACCINE (#1) 2017 TETANUS EVERY 10 YR 02/13/2027 02/13/2017, 01/28/2017 as of this encounter Visit Diagnoses Diagnosis Encounter for long-term use of opiate analgesic - Primary Encounter for long-term (current) use of other medications DDD (degenerative disc disease), lumbar Degeneration of lumbar or lumbosacral intervertebral disc Degeneration of intervertebral disc of cervical region
--- OUTSIDE RECORDS SUMMARY | 2018-07-20 12:09 | XMS RPT_ITS ---
:1970 Author Organization OHIP Care Team Providers Name Role Phone K, RODOLFO POWELL Attending Unavailable JASON, KARLOS SALBADOR Primary Care Unavailable PROK, RODOLFO POWELL Attending Unavailable JASON, KARLOS SALBADOR Primary Care Unavailable PROK, RODOLFO POWELL Attending Unavailable JASON, KARLOS SALBADOR Primary Care Unavailable PROK, RODOLFO POWELL Attending Unavailable JASON, KARLOS SALBADOR Primary Care Unavailable PROK, RODOLFO POWELL Attending Unavailable JASON, KARLOS SALBADOR Primary Care Unavailable PROK, RODOLFO POWELL Attending Unavailable JASON, KARLOS SALBADOR Primary Care Unavailable PROK, RODOLFO POWELL Attending Unavailable JASON, KARLOS SALBADOR Primary Care Unavailable PROK, RODOLFO POWELL Attending Unavailable PROK, RODOLFO POWELL Referring Unavailable JASON, KARLOS SALBADOR Primary Care Unavailable LANDON ESCOBEDO Attending Unavailable LANDON ESCOBEDO Referring Unavailable JASON, KARLOS SALBADOR Primary Care Unavailable PROK, RODOLFO POWELL Attending Unavailable JASON, KARLOS SALBADOR Primary Care Unavailable PROK, RODOLFO POWELL Attending Unavailable JASON, KARLOS SALBADOR Primary Care Unavailable JASONKARLOS Attending Unavailable SELF, SELF Referring Unavailable NOEMY BALTAZAR Attending Unavailable DALE OLIVEROS Attending Unavailable JASON, KARLOS Referring Unavailable DALE OLIVEROS Attending Unavailable DALE OLIVEROS Referring Unavailable ZURI WARE Attending Unavailable NAMITA PASCAL Attending Unavailable SELF, SELF Referring Unavailable JASON, KARLOS O Attending Unavailable SELF, SELF Referring Unavailable Jason, Wing Primary Care Unavailable Carlitos Gudino Attending Unavailable Bereket Ash Attending Unavailable Jason, Wing Referring Unavailable Trey Cerna Attending Unavailable Bentley, Dayne Referring Unavailable Jason, Wing Primary Care Unavailable TIFFANI PEREZ Consulting Unavailable TIFFANI PEREZ Attending Unavailable Bentley, Dayne Attending Unavailable Bentley, Dayne Referring Unavailable Jasno, Wing Primary Care Unavailable Bereket Ash Attending Unavailable Mihir, Bereket Referring Unavailable Jason, Wing Primary Care Unavailable Bereket Ash Attending Unavailable Mihir, Bereket Referring Unavailable Jason, Wing Primary Care Unavailable Mihir Bereket Attending Unavailable Jason, Wing Referring Unavailable ASSESSMENT, HEALTH RISK Attending Unavailable ASSESSMENT, HEALTH RISK Referring Unavailable Jason, Wing Primary Care Unavailable PROBLEMS PROBLEMS DATE TYPE CONDITION / CODE ATTENDING STATUS SOURCE 05/20/2018 Ad[facility] [place] [facility] LANDON ORTEZ Three M54.6(ICD-10) Repository 05/20/2018 Unknown S16.1XXA - Strain of Bereket Ash Active [facility] muscle, fascia and Community tendon at neck Hospital level, initial Repository encounter / S16.1XXA(ICD-10) 05/12/2018 Active Pain in left arm / DELANEY, Active [facility] M79.602(ICD-10) [facility] ([place] Repository 05/12/2018 Active Strain of muscle, DELANEY, Active [facility] fascia and tendon at [facility] System ([place]) neck level, initial Repository encounter / S16.1XXA(ICD-10) 05/12/2018 Active Unspecified fall, DELANEY, Active [facility] subsequent encounter NOEMY [facility] ([place]) / W19.XXXD(ICD-10) Repository 05/13/2018 Unknown M79.632 - Pain in Shahab, Active [place] left forearm / [facility] M79.632(ICD-10) Hospital Repository 02/24/2018 Admitting Follow-up / 145() KARLOS GOMEZ Active [facility] ([place]) Repository 12/06/2017 Unknown J32.2 - Chronic Bentley, Dayne Active [facility] ethmoidal sinusitis Community / J32.2(ICD-10) Hospital Repository 12/06/2017 Unknown J32.0 - Chronic Bentley, Dayne Active [facility] maxillary sinusitis Community / J32.0(ICD-10) Hospital Repository 12/06/2017 Unknown J34.3 - Hypertrophy Bentley, Dayne Active [place] of nasal turbinates Community / J34.3(ICD-10) Hospital Repository 01/31/2018 Unknown Z01.810 - Encounter [employer], Active [place] for preprocedural [facility] examination / Repository Z01.810(ICD-10) 11/03/2017 Admitting [facility] [place] unspecified / ZURI E System ([place]) J01.90(ICD-10) Repository 11/03/2017 Admitting Allergic rhinitis [facility], [facility] Diagnosis due to pollen / ZURI E [facility] ([place]) J30.1(ICD-10) Repository 11/03/2017 Admitting Acute bronchitis, JEANIE, Active [facility] Diagnosis unspecified / ZURI E [place] ([place] J20.9(ICD-10) Repository 09/28/2017 Admitting Bronchitis, not NA [facility] specified as acute System ([place]) or chronic / Repository J40(ICD-10) 06/13/2015 Admitting USP (current) PROKRODOLFO [facility] diagnosis use of opiate SHERRY Morris analgesic / Repository Z79.891(ICD-10) 01/10/2015 Admitting Other intervertebral PRORODOLFO [facility] diagnosis disc degeneration, SHERRY Morris lumbar region / Repository M51.36(ICD-10) 01/10/2015 Admitting Other cervical disc PRORODOLFO [facility] diagnosis degeneration, SHERRY Morris unspecified cervical Repository region / M50.30(ICD-10) 06/26/2017 Admitting Pain in right DALE OLIVEROS [facility] Diagnosis shoulder / L System ([place]) M25.511(ICD-10) Repository PROCEDURES PROCEDURES No Procedure Records FoundRESULTS RESULTS XR THORACIC SPINE 2 Observed: 05/20/2018 Status: F Source: [facility] 2:13 PM THREE REPOSITORY Order Comment: Reason for exam?:Fell down steps/ twisted back/ pain between scapulas/ numbness/ strange skin sensation on left side best films due to pain/ unable raise arms Injury/Trauma or Illness?:Injury/Trauma How long have you had these symptoms (acute/chronic)?:Acute History of cancer?:no Surgeries, chemotherapy, or radiation?:yes lumbar Type of Exam?:Ongoing Mechanism of injury?:fell down steps on 08 of may EXAMINATION: THORACIC SPINE 3 VIEWS COMPARISON: Chest radiograph performed 11/03/2017. HISTORY: Dx: M54.6 (Bilateral thoracic back pain, unspecified chronicity). FINDINGS: The vertebral body heights are well-maintained and aligned with no fracture, subluxation, or dislocation. There is mild spur formation involving the [id number] thoracic vertebral bodies with mild disc space narrowing evident. There is no significant degenerative change in the included lower cervical spine. The included ribs are intact. The included lungs are clear. The cardiac silhouette is not enlarged. IMPRESSION 1. Only mild degenerative spondylosis at the klp-wv-bbjhy thoracic spine. DP/M[employer] App Workstation ID: [id number] Dictated by: SHANNAN DIAZ on SatMay 20, 2018 3:44:15 PM EST Transcribed by: MAIA BROOKS IN CARMENI SPEECHQ on SatMay 20, 2018 4:03:33 PM EST Finalized by: SHANNAN DIAZ on SatMay 20, 2018 4:13:09 PM EST XR LUMBAR SPINE 2-3 Observed: 05/20/2018 Status: F Source: [facility] (STANDARD[facility] 2:07 PM THREE REPOSITORY Order Comment: Reason for exam?:Fell down steps/ twisted back/ pain between scapulas/ numbness/ strange skin sensation on left side pain down left posterior hip and leg/ numbness Injury/Trauma or Illness?:Injury/Trauma How long have you had these symptoms (acute/chronic)?:Acute History of cancer?:no Surgeries, chemotherapy, or radiation?:yes lumbar Type of Exam?:Initial Mechanism of injury?:fell down steps/ hit left side EXAMINATION: LUMBAR SPINE 4 VIEWS COMPARISON: 12/27/2016. HISTORY: Dx: M51.36 (DDD (degenerative disc disease), lumbar) FINDINGS: There has been decompressive laminectomy at L4 and L5. Posterior fusion is achieved from L3 through S1 via bilateral pedicle screws at L3, L4, and S1. There is no evidence of screw fracture, loosening, or other complication of hardware placement. Alignment appears anatomic on the lateral view. Degenerative spondylosis is seen throughout the lumbar spine. This appears to have progressed at L2-L3 since the prior study. There is mild dextroconvex scoliosis. The surrounding soft tissues are otherwise unremarkable. IMPRESSION: 1. Decompressive laminectomy with posterior fusion from L3 through S1. 2. No complication of hardware placement. 3. Anatomic alignment. 4. Worsening degenerative disc disease at L2-L3. GERMAN/mayur Workstation ID: [id number] Dictated by: SHANNAN DIAZ on SatMay 20, 2018 4:06:23 PM EST Transcribed by: DORIS WILSON on SatMay 20, 2018 4:07:13 PM EST Finalized by: SHANNAN DIAZ on SatMay 20, 2018 4:13:13 PM EST URGENT CARE VISIT Observed: 05/16/2018 Status: F Source: [place] REPORT 7:04 PM [facility] REPOSITORY [address] [place] [address] OFFICE VISIT Date of Service: 05/16/18 MR#: [id number] Acct: [id number] Name: BRANDIE HURTADO Rep #: [id number] : 1970 Provider: Bereket CHAHAL Age/Sex: 47/F Location[place] [facility] Status: Signed Intake Vital Signs05/16/18 Height 5 ft 6 in Intake Visit Reasons: [facility]/ SHOULDER Accompanied by: self Is patient in pain?: Yes Pain scale (1-10): 10 Allergies celecoxib [From Celebrex] Allergy (Verified 05/16/18 13:32) Rash Penicillins [PCN] Allergy (Verified 05/16/18 13:32) Rash sulfamethoxazole [From Bactrim] Allergy (Verified 05/16/18 13:32) Other trimethoprim [From Bactrim] Allergy (Verified 05/16/18 13:32) Other Medications Oxycodone HCl/Acetaminophen [Percocet 10-325 mg Tablet] 1 tab PO Q6H PRN PRN 7 Days #30 tab 12/06/17 [Rx Confirmed 05/16/18] PFSH Surgical History History of back surgery (Resolved) History of cholecystectomy (Resolved) History of nasal surgery (Resolved) Family History Grandmother Cancer Uknown Aunt Cancer Ovarian Social History Smoking Status: Former smoker HPI HPI Details: BRANDIE HURTADO, is a 47 F who presents to the office today for follow-up of a work-related injury which occurred on 05/08/2018. Patient was seen on that day at [facility] ED and then the next day here in this office on 05/09/2018 and found to have a cervical strain as well as left arm contusion. Form C9 was filled out for a MRI of the cervical spine as well as left shoulder due to patient's complaint of left arm numbness/tingling as well as inability to complete full range of motion with left arm at the shoulder joint. Patient did receive a MRI of the cervical spine with the following interpretation the study is normal with no acute fractures or any abnormal marrow infiltrative processes. There is however mild effacement of the CSF anterior to the cord at the C4-C5 . The patient continues to complain of pain to her neck which radiates down to the tips of her left fingers which she describes as feeling like ice water being poured over her hand. She rates this pain a 6-8 out of 10 at worst which is irritated with movement of the left arm. Patient also did report to an area ER after her appointment here for complaint of worsening headache. Patient states that headache has since improved despite the use of no medications given to her at the ED. Patient continues to deny striking her head or any kind of wound on her head from the incident. She also continues to wear the arm sling when possible. No other associated symptoms or alleviating/aggravating factors. ROS Const Constitutional: Positive for other (Full review of systems completed with pertinent findings in the HPI.) Exam Const General: cooperative, healthy appearing Neck Neck: normal visual inspection, no lymphadenopathy, full ROM Resp Effort AND Inspection: normal respiratory effort Auscultation: Bilateral: Clear to Auscultation Cardio Palpation: normal PMI Rate: regular rate Rhythm: regular rhythm Musc Musculoskeletal: Yes joint tenderness Cervical Spine: normal cervical lordosis and cervical ROM normal Thoracic/Lumbar Spine: thoracic and lumbar spine normal to inspection Skin General: no rashes or lesions noted Neuro General: alert, CN's II-XI intact bilaterally, oriented x3 Gait: normal gait Motor: muscle tone normal throughout, strength 5/5 throughout Sensory Exam: no sensory deficits noted Extrem General: normal capillary refill, normal exam except as noted, no joint enlargement Other: Contusion left mid forearm with normal distal pulses and sensation. Able to touch the top of her head with her left hand however refuses to do Apley scratch test due to pain. Psych Appearance: grossly normal Mental Status: mental status grossly normal Mood: anxious mood Affect: anxious affect Other: Patient visibly anxious or agitated as she will not sit for the exam in the room stating that her pain is made worse when she sits. Assessment AND Plan Problems 1. Contusion of left forearm, initial encounter S50.12XA 2. Acute strain of neck muscle, initial encounter S16.1XXA Plan Due to ongoing complaints of neurological type pain and some abnormal findings on the cervical MRI patient will be referred to neurology for further evaluation and treatment. Form C9 filled out referring patient to neurologist. [employer] 14 filled out releasing patient back to work today with restrictions of no use of the left arm for work purposes. Patient advised to continue with medications as prescribed to her by her pain management physician for pain. She is also been advised of potential red flags including but not limited to immobility of the left arm, worsening pain or lasting numbness and when appropriate to report to the ED. Patient advised to follow-up here on 05/27/2018 unless she is able to get into the neurologist before that. All questions addressed at length with the patient. Patient verbalized understanding and agreement with all the above. Coding Level of Care Code Off vis,est,level 4 Diagnoses Contusion of left forearm, initial encounter S50.12XA Acute strain of neck muscle, initial encounter S16.1XXA Encounter type: initial encounter 05/16/18 1904 <Electronically signed by Bereket CHAHAL> Date Bereket CHAHAL Cosigner Signature: Date (if applicable) CC: SPINE CERVICAL Observed: 05/15/2018 Status: F Source: [place] (ROUTINE) 6:18 PM [facility] REPOSITORY [facility] Imaging Services [address] [place] [address] Spine Cervical (Routine) MR#: [id number] Acct: [id number] Name: BRANDIE HURTADO Rep #: [id number] : 1970 F 47 From: Stephon Benavidez MD PCP: FELA Casiano Status: REG CLI Study: Spine Cervical (Routine) Date of Exam: 05/15/18 Exam# [id number] Ordering Dr: Buster Moreno STUDY: MRI CERVICAL SPINE WITHOUT CONTRAST REASON FOR EXAM: Female, 47 years old. Patient fell TECHNIQUE: Standardized fat and water weighted pulse sequences were obtained in the sagittal and axial planes. COMPARISON: None FINDINGS: There is no tonsillar ectopia. There is a normal cervicomedullary junction. The cervical spinal cord is of normal morphology and signal intensity with no myelomalacia, contusion or myelopathy. Cervical spine demonstrates a normal lordotic curvature with no acute fractures or dislocations and no abnormal marrow infiltrative processes. The disc spaces are of normal height and signal intensity. The craniovertebral junction is normal. The tectorial membrane is normal. . C2-3: Normal endplates. Normal disc height, signal and morphology. Normal central canal and intervertebral neural foramina. C3-4: Normal endplates. Normal disc height, signal and morphology. Normal central canal and intervertebral neural foramina. C4-5: Normal endplates. Normal disc height, signal and morphology. Normal central canal and intervertebral neural foramina. Mild effacement of the CSF anterior to the cord C5-6: Normal endplates. Normal disc height, signal and morphology. Normal central canal and intervertebral neural foramina. C6-7: Normal endplates. Normal disc height, signal and morphology. Normal central canal and intervertebral neural foramina. C7-T1: Normal endplates. Normal disc height, signal and morphology. Normal central canal and intervertebral neural foramina. . MRI/Spine Cervical (Routine) IMPRESSION: The study is normal with no acute fractures or any abnormal marrow infiltrative processes. There is however mild effacement of the CSF anterior to the cord at the C4-C5 Electronically Signed: Stephon Benavidez MD at 6:39 EST Tel , Service support , CC: FELA Gomez; Buster CHAHAL Meters Superintendent: Signed URGENT CARE VISIT Observed: 05/09/2018 Status: F Source: [place] REPORT 2:10 PM [facility] REPOSIT[facility] [address] [place] [address] [address] [place] [address] OFFICE VISIT Date of Service: 05/09/18 MR#: [id number] Acct: [id number] Name: BRANDIE HURTADO Rep #: [id number] : 1970 Provider: Bereket CHAHAL Age/Sex: 47/F Location: [facility] Status: Signed Intake Vital Signs05/09/18 Body Mass Index (BMI) 29.0 05/09/18 Height 5 ft 6 in Intake Visit Reasons: ED FOLLOW Is patient in pain?: Yes Allergies celecoxib [From Celebrex] Allergy (Verified 05/09/18 13:14) Rash Penicillins [PCN] Allergy (Verified 05/09/18 13:14) Rash sulfamethoxazole [From Bactrim] Allergy (Verified 05/09/18 13:14) Other trimethoprim [From Bactrim] Allergy (Verified 05/09/18 13:14) Other Medications Oxycodone HCl/Acetaminophen [Percocet 10-325 mg Tablet] 1 tab PO Q6H PRN PRN 7 Days #30 tab 12/06/17 [Rx Confirmed 05/09/18] PFSH Surgical History History of back surgery (Resolved) History of cholecystectomy (Resolved) History of nasal surgery (Resolved) Family History Grandmother Cancer Uknown Aunt Cancer Ovarian Social History Smoking Status: Former smoker HPI HPI Details: BRANDIE HURTADO, is a left hand dominant 47 F who presents to the office today for follow-up of a work-related injury which occurred on 05/08/2018. Patient was initially evaluated at [facility] ED and found to have a left forearm contusion and cervical strain. Patient states that she injured herself falling down a set of stairs and catching herself with her left arm on a banister. Today she states that she has had increasing burning and tingling radiating from her left shoulder down to her fingers and states having difficulty grasping small objects. She denies numbness or loss in range of motion however states that range of motion to the left arm does cause an 8 out of 10 pain. No other associated symptoms or alleviating/aggravating factors. ROS Const Constitutional: Positive for other (Full review of systems completed with pertinent findings in the HPI.) Exam Const General: cooperative, healthy appearing Neck Neck: normal visual inspection, no lymphadenopathy, full ROM Resp Effort AND Inspection: normal respiratory effort Auscultation: Bilateral: Clear to Auscultation Cardio Palpation: normal PMI Rate: regular rate Rhythm: regular rhythm Musc Musculoskeletal: Yes joint tenderness Cervical Spine: normal cervical lordosis and cervical ROM normal Thoracic/Lumbar Spine: thoracic and lumbar spine normal to inspection Skin General: no rashes or lesions noted Neuro General: alert, CN's II-XI intact bilaterally, oriented x3 Gait: normal gait Motor: muscle tone normal throughout, strength 5/5 throughout Sensory Exam: no sensory deficits noted Extrem General: full ROM, normal capillary refill, normal exam except as noted, no joint enlargement Other: Contusion left mid forearm with normal distal pulses and sensation. Able to touch the top of her head with her left hand however refuses to do Apley scratch test due to pain. Psych Appearance: grossly normal Mental Status: mental status grossly normal Assessment AND Plan Problems 1. Acute strain of neck muscle, initial encounter S16.1XXA Status Acute 2. Contusion of left forearm, initial encounter S50.12XA Status Acute Plan [employer] 14 filled out releasing patient back to work today with restrictions of no use of the left hand for work purposes. Additionally form C9 filled out for MRI of the left shoulder and neck. Patient advised to continue with naproxen and placed in a sling. Advised she needs to follow-up here in this office in 1 week for further evaluation or sooner should her symptoms worsen. Patient advised of potential red flags and when appropriate to report to the ED. Patient verbalized understanding and agreement with all the above. Coding Level of Care Code Off vis,new,level 3 Diagnoses Acute strain of neck muscle, initial encounter S16.1XXA Encounter type: initial encounter Contusion of left forearm, initial encounter S50.12XA 05/09/18 1410 <Electronically signed by Bereket CHAHAL> Date Bereket CHAHAL Cosigner Signature: Date (if applicable) CC: EMERGENCY DEPARTMENT Observed: 05/08/2018 Status: F Source: [place] SUMMARY 5:46 PM [facility] REPOSITORY [facility] Medical Records Department [address] [place] [address] Emergency Department Summary 05/08/18 1453 MR#: [id number] Acct: [id number] Name: BRANDIE HURTADO Maxime Rep #: [id number] : 1970 47 From: Carlitos Gudino MD PCP: FELA Casiano Status: DEP ER - ER Visit Summary Date of Service: 05/08/18 Chief Complaint: Left forearm pain History of Present Illness: The patient is a [address] Gomez in [place]. She reports that she was going down the steps at work today and lost her footing. She slipped and caught herself with her left arm. She hit this on the banister. She reports she has pain that is 8 out of 10 severity. She reports she has left-sided neck pain is 7 out of 10 severity. She is left-hand dominant. Patient reports that she did not fall. No blow to the head or loss of consciousness. No back, shoulder, or hip pain. Physical Examination: Vitals: Stable. Afebrile. Mild tenderness to palpation of the paraspinous muscular on the left and the left trapezius muscle. Neck: No vertebral tenderness. Full ROM without difficulty. Cleared by NEXUS criteria. Back: No vertebral tenderness. General: A AND O x 3. NAD. Cardiovascular exam: Regular rate and rhythm, no murmur, rub or gallop. Respiratory exam: Chest nontender. No crepitus. Clear to auscultation bilaterally. No wheezes or stridor. Abdominal exam: Soft, nontender, nondistended, normal bowel sounds. No pain in RUQ or LUQ specifically. No peritoneal signs. Extremity: Contusion over the lateral portion of her distal left forearm. Moderate diffuse translation of her entire forearm. Normal range of motion, but this does increase her pain. 2+ radial pulse. Test Results: Left forearm x-ray is negative. Emergency Department Course and Treatment: Patient was placed in a sling treated with naproxen. Treatment Plan: Patient will be discharged with limited use of her left arm work restrictions. She is in pain management already has opiate-based medications at home. She is instructed to add Tylenol and/or ibuprofen for pain. Follow-up with corporate care in 1 week for another exam. Return to the emergency department for any worsening symptoms. Disposition: To home in improved and stable condition. Impression: 1. Contusion left forearm. 2. Cervical strain. This note was generated with [employer]ation software. It may contain incorrect words, spelling, and punctuation that were not noted in review of the chart prior to signing ED Disposition - Plan for ED Patient: Chief Complaint: Upper Extremity Injury Instructions: ED Contusion Upper Ext Referrals: Corporate,Care [GROUP OF PHYSICIANS] - 1 Week What to do if you have Problems For any increased pain, shortness of breath, bleeding, nausea or vomiting, chest pain, or any unexpected problems, contact your Primary Care Provider. Call [facility] ([phone]) or report to the closest Emergency Room. Call 911 if necessary. 05/08/18 1746 <Electronically signed by Carlitos Gudino MD> Date Carlitos Gudino MD Cosigner Signature (If Indicated): Date CC: FELA Gomez FOREARM 2 VIEWS Observed: 05/08/2018 Status: F Source: [place] 1:46 PM [facility] REPOSIT[facility] Imaging Services [address] [place] [id number] Forearm 2 Views MR#: [id number] Acct: [id number] Name: BRANDIE HURTADO Rep #: [id number] : 1970 F 47 From: Solo Martinez MD PCP: FELA Casiano Status: PRE ER Study: Forearm 2 Views Date of Exam: 05/08/18 Exam# [id number] Ordering Dr: Carlitos Gudino MD STUDY: X-RAY - LEFT RADIUS AND ULNA REASON FOR EXAM: Female, 47 years old. Pain secondary to a fall. TECHNIQUE: 2 view(s) of the forearm. COMPARISON: None. FINDINGS: There is no demonstrated soft tissue swelling. Normal visualized radius. Normal visualized ulna. RAD/Forearm 2 Views IMPRESSION: Normal x-ray examination of the radius and ulna. Electronically Signed: Solo Martinez MD at 14:18 EST Tel [phone], Service support , CC: FELA Gomez; Carlitos Gudino MD Meters Superintendent: Signed SCREENING MAMM (CAD), Observed: 02/20/2018 Status: F Source: LM BILAT 4:38 PM [facility] REPOSITORY [facility] Imaging Services [address] [place] [address] SCREENING MAMM (CAD), BILAT MR#: [id number] Acct: [id number] Name: BRANDIE HURTADO Rep #: [id number] : 1970 F 47 From: Solo Martinez MD PCP: FELA Casiano Status: REG CLI Study: SCREENING MAMM (CAD), BILAT Date of Exam: 02/20/18 Exam# [id number] Ordering Dr: Wing Gomez MAMMOGRAPHY - BILATERAL SCREENING REASON FOR EXAM: Female, 47 years old. Routine annual screening examination. PERTINENT HISTORY: Non-contributory. TECHNIQUE: Digital bilateral breast felix (3D mammographic acquisition) in the CC and MLO projections. 2-D mediolateral oblique (MLO) and craniocaudad (CC) views of both breasts were obtained. CAD: Full Field Digital Mammography with Computer Added Detection was performed. COMPARISON: Comparison is made with prior examination dated July 13, 2015. FINDINGS: Breast Composition: There are scattered areas of fibroglandular density. There are no dominant masses or suspicious calcifications. No other significant abnormalities are identified. There has been no significant change since the prior study. BI/SCREENING MAMM (CAD), BILAT IMPRESSION: Stable bilateral screening mammogram. Yearly follow-up mammogram recommended. (A) ASSESSMENT CATEGORY: BIRADS Category 1: Negative. A letter regarding these results will be sent to the patient by the facility within 30 days. Approximately 10% of breast cancers are not detected by mammography. A normal mammogram should not delay biopsy of a clinically suspicious abnormality. [id number] Electronically Signed: Solo Martinez MD at 7:58 EST Tel [phone], Service support , CC: FELA Gomez; Wing Gomez Meters Superintendent: Signed CBC, EMPLOYEE Collected: 01/22/2018 Status: F Source: [place] 8:38 AM [facility] REPOSITORY TYPE CODE TESTS RESULT OUT OF RANGE REFERENCE UNITS LAB L100.1000 4.4-11.0 K/mm3 Normal WBC 9.9 LAB L100.1200 4.2-5.4 M/mm3 Normal RBC 4.66 LAB L100.1300 12.0-15.0 g/dl Normal HGB 14.5 LAB L100.1400 37-47 % Normal HCT 44.4 LAB L100.1500 81-99 fL Normal MCV 95.3 LAB L100.1600 27.0-32.0 pg Normal MCH 31.1 LAB L100.1700 32-36 g/gl Normal MCHC 32.7 LAB L100.1810 11.6-14.6 % Normal RDW CV 12.8 LAB L100.1820 35.1-43.9 fl High RDW SD 44.1 LAB L100.1900 150-450 K/mm3 Normal PLT 267 LAB L100.2000 6.2-12.0 fl Normal MPV 9.8 LAB L100.2110 47-70 % Normal NEUT% 62.0 LAB L100.2210 19-41 % Normal LY% 28.2 LAB L100.2310 0-10 % Normal MONO% 7.1 LAB L100.2410 0-5 % Normal EO% 2.2 LAB L100.2510 0-1 % Normal BASO% 0.3 LAB L100.2620 2.0-7.7 X10 3/uL Normal Absolute Neut 6.2 LAB L100.2720 0.83-4.51 X10 3/ul Normal Absolute Lymph 2.80 Performed By: #### L100.0200 #### [facility] [address] [place], [place], [address] URINALYSIS, EMPLOYEE Collected: 01/22/2018 Status: F Source: [place] 8:38 AM [facility] REPOSITORY TYPE CODE TESTS RESULT OUT OF RANGE REFERENCE UNITS LAB L400.3000 Yellow COLOR Normal Yellow LAB L400.3050 Clear Normal CLARITY Sl. Cloudy LAB L400.3200 Normal mg/dl Normal GLUCOSE, UR Normal LAB L400.3300 Negative mg/dL Normal BILIRUBIN URINE Negative LAB L400.3400 Negative mg/dl Normal KETONE UR Negative LAB L400.3465 1.002-1.030 Normal SP.GR. DIPSTX 1.010 LAB L400.3550 5.0 - 8.0 pH UR Normal 6.0 LAB L400.3600 Negative mg/dl PROT Normal DIPSTX Negative LAB L400.3700 Normal mg/dl Normal UROBILI Normal LAB L400.3750 Negative Normal NITRITE UR Negative LAB L400.3780 Negative /ul Normal OCCULT BLOOD-UR Negative LAB L400.3800 Negative /ul LEUK Normal ESTERASE Negative Performed By: #### L400.0100 #### [facility] [address] [place], [place], [address] EMPLOYEE PROFILE Collected: 01/22/2018 Status: F Source: [place] 8:38 [facility] REPOSITORY TYPE CODE TESTS RESULT OUT OF RANGE REFERENCE UNITS LAB L501.0100 74-106 mg/dL Normal GLU 87 Result Comment: Please note revised GLUCOSE reference range effective 2017. LAB L501.1000 7-18 mg/dL Normal BUN 9 LAB L501.1100 0.55-1.02 mg/dL Normal CREAT,SERUM 0.79 Result Comment: The validity of the calculated GFR AND GFRAA in patients over 70 years has not been determined. Clinical correlation is essential. LAB L501.1110 >60 mL/min Normal EST GFR 84 Result Comment: Non- GFR Calc LAB L501.1115 >60 mL/min Normal EST GFR - AA 101 Result Comment: GFR Calc LAB L501.1300 10-20 RATIO Normal BUN/CRE 11.4 LAB L501.1400 2.6-6.0 mg/dL Normal URIC 3.0 Result Comment: The drugs N-Acetylcysteine and Metamizole may falsely depress this assay. LAB L501.1500 6.4-8.2 g/dL Normal T PROT 7.7 LAB L501.1800 3.2-5.0 g/dL Normal ALB 3.7 LAB L501.1950 2.2-4.2 g/dL Normal GLOB 4.0 LAB L501.2000 0.9-2.4 RATIO Normal A/G 0.9 LAB L501.2200 8.5-10.1 mg/dL Low CA 8.3 LAB L501.2300 2.5-4.9 mg/dL Normal PHOS 3.8 LAB L501.4100 15-37 U/L Low AST 14 LAB L501.4305 45-117 U/L Normal ALK P 87 LAB L501.4405 13-56 U/L Normal ALT 21 LAB L501.4600 0.20-1.00 mg/dL Normal T BILI 0.30 LAB L501.4700 0.00-0.30 mg/dL Normal D BILI 0.09 LAB L501.4900 200 mg/dL Normal CHOL 153 Result Comment: <200 mg/dL Desirable 200-240 mg/dL Borderline >240 mg/dL High Risk LAB L501.5000 mg/dL Normal TRIG 84 Result Comment: The drugs N-Acetylcysteine and Metamizole may falsely depress this assay. Serum Triglycerides Reference Interval Normal <150 mg/dL Borderline high 150 - 199 mg/dL High 200 - 499 mg/dL Very High > or = 500 mg/dL LAB L501.5300 136-145 mmol/L Normal NA 139 LAB L501.5600 3.5-5.1 mmol/L Normal K 3.8 LAB L501.5900 98-107 mmol/L Normal CL 106 LAB L501.6100 21.0-32.0 mmol/L Normal CO2 28.0 LAB L501.6200 5-15 Normal 5 GAP LAB L501.6400 mg/dL Normal HDL 48 Result Comment: The drugs N-Acetylcysteine and Metamizole may falsely depress this assay. Reference Range HDL <40 mg/dL Low HDL Cholesterol HDL >or= 60 mg/dL High HDL Cholesterol LAB L501.6475 Normal CHOL:HDL 3.20 LAB L501.6500 0-130 mg/dL Normal LDL 88 LAB L501.6600 5-40 mg/dL Normal VLDL 17 LAB L504.2610 84-246 U/L Normal LDH 204 Performed By: #### L500.2900 #### [facility] [address] [place], [address] NICOTINE URINE DRUG Collected: 01/22/2018 Status: F Source: [place] SCREEN 8:38 AM [facility] REPOSITORY TYPE CODE TESTS RESULT OUT OF RANGE REFERENCE UNITS LAB L505.6250 TO BE Normal CONFIRMED Result Comment: CONFIRMATORY TESTING FOR ALL POSITIVE URINE DRUG SCREEN RESULTS WILL ONLY BE SENT OUT UPON PHYSICIAN ORDER. The results of Urine Drug Screen methods provide only preliminary analytical test results. A more specific alternate chemical method must be used in order to obtain a confirmed analytical result. Gas chromatography/mass spectrometery (GC/MS) is the preferred confirmatory method. Clinical consideration and professional judgement should be applied to any drug of abuse test result, particularly when preliminary positive results are used. LAB L505.6270 <200 ng/mL High COT DRG Positive SCREEN Result Comment: Cotinine is the first-stage metabolite of Nicotine. Performed By: #### L505.6240 #### [facility] [address] [place], [address] OPERATIVE REPORT Observed: 12/09/2017 Status: F Source: LM 7:16 AM [facility] REPOSITORY [facility] Medical Records Department [address] [place] [address] Operative Report 12/06/17 1303 MR#: [id number] Acct: [id number] Name: BRANDIE HURTADO Rep #: [id number] : 1970 47 From: Dayne Bentley MD PCP: FELA Casiano Status: DEP [facility] Y Location: [facility] Problem List (1) Chronic maxillary sinusitis Status: Chronic (2) Chronic ethmoidal sinusitis Status: Chronic (3) Hypertrophy of both inferior nasal turbinates Status: Chronic Report of Operation Date of Procedure: 12/06/17 Pre-Operative Diagnosis: Chronic sinusitis, hypertophy of inferior nasal turbinates Post-Operative Diagnosis: same Surgery/Procedure Performed:: Bilateral endoscopic total ethmoidectomy, maxillary antrostomies, submucous resection of inferior nasal turbinates Description of Surgical Findings:: Brandie is a 47-year-old female presents evaluation of chronic sinusitis and nasal obstruction. Examination showed hypertrophy inferior nasal turbinates as well as narrowing of the nasal valve with some collapse and CT scan confirmed chronic ethmoid and maxillary sinus changes and the above procedure was offered in hopes of alleviation of these complaints and she was eager to proceed. The risks, alternatives, potential benefits, and complications were discussed at length and any questions answered to the patient and/or caregiver's satisfaction. Witnessed informed consent was obtained in the office, and the patient and/or caregiver was agreeable to proceed. Procedure went as follows: The patient was identified in the preoperative holding and brought to the operating room, was placed under general anesthesia and intubated. When appropriate anesthesia was obtained, the navigational head gear was placed and confirmed to be operational in accordance with the podiatric medicine professor's directions. Pledgets soaked in a 50-50 mixture of oxymetazoline and 4% topical lidocaine were placed to decongest the nasal mucosa. These were then removed and beginning on the left side using a 0 endoscope the nasal cavity examined. The insertion of the middle turbinate and uncinate process was then injected with 1% lidocaine with 100,000 epinephrine for a 2 cc total, and a similar injection was then carried on the contralateral side. Upon returning to the left side the middle turbinate was medialized with a Fiona elevator. This allowed examination of the maxillary sinus ostia which is then probed with a double ball seeker. The uncinate process process was then outfractured with a J curette and transected with a backbiting forceps. This was then removed with the microdebrider creating a wide maxillary antrostomy. The ethmoid bulla was then entered and total ethmoidectomy was then carried out working posteriorly to anterior. Any polyps, scar, and mucous secretions were removed. Pledgets soaked in oxymetazoline were then placed for hemostasis and attention turned to the contralateral side. Similar procedure and findings were then carried out. Floseal hemostatic agent was then applied. Attention was then turned to the inferior nasal turbinates. Anterior aspect of the inferior turbinate was then injected with 1% lidocaine with 100,000 epinephrine for a total of 1 cc bilaterally and then beginning on the left side a 15 blade scalpel used to create a stab incision in the anterior aspect of the turbinate. A caudal elevator was then used to elevate a submucosal plane. Using the microdebrider the anterior bony intervening submucosal was then removed resulting in excellent reduction of the inferior turbinate. Similar procedure was then completed on the contralateral side. Alva splints were then applied after cutting with bacitracin ointment and secured to the columella with a single 3-0 Prolene suture. An NG tube was then placed to decompress the stomach and the patient returned to anesthesia, revived and extubated having tolerated the procedure well. Type of Anesthesia:: General Anesthesiologist: Dayne Corbin Special Medications: none Specimen's removed: sinus and inferior nasal turbinate contents Drains: none Estimated Blood Loss (mL): 200 mL Fluids Replaced: 1100 mL Grafts/Implants Used: Alva splints - Complications none - Admit VTE Documentation VTE Present on Admission: No VTE Mechan Device Prophylaxis: SCD's VTE Pharm Prophylaxis ordered?: No 12/06/17 1309 <Electronically signed by Dayne Bentley MD> Date Dayne Bentley MD CC: FELA Gomez; Dayne Bentley MD Signed 12 LEAD ELECTROCARDIOGRAM Observed: 12/06/2017 Status: F Source: [place] 2:03 PM [facility] REPOSITORY [facility] Cardiovascular Services [address] [place] [address] 12 Lead EKG 12/04/17 1651 MR#: [id number] Acct: [id number] Name: BRANDIE HURTADO Rep #: [id number] : 1970 47 From: Trey Cerna MD Attending Dr: Dayne Bentley MD Status: REG [facility] Ordering Dr: Dayne Bentley MD Date: 12/04/17 Location: AC Sex: F UTD Admitted: Test Reason : PREOP Blood Pressure : / mmHG Vent. Rate : 065 BPM Atrial Rate : 065 BPM P-R Int : 196 ms QRS Dur : 092 ms QT Int : 396 ms P-R-T Axes : 029 062 052 degrees QTc Int : 411 ms Normal sinus rhythm Normal ECG Confirmed by NEHEMIAH SILVERIO, TREY ([id number]), editor map KIRSTEN MORENO ([id number]) on 12/06/2017 2:03:22 PM Referred By: Dayne Bentley Confirmed By:TREY CERNA MD 12/06/17 1403 Date Trey Cerna MD CC: FELA Gomez; Dayne Bentley MD Signed DISCHARGE INSTRUCTION Observed: 12/06/2017 Status: F Source: [place] 1:09 PM [facility] REPOSITORY [facility] Medical Records Department [address] [place] [address] Instructions for Home/Discharge Instructions 12/06/17 1309 MR#: [id number] Acct: [id number] Name: BRANDIE HURTADO Rep #: [id number] : 1970 47 From: Dayne Bentley MD PCP: FELA Casiano Status: REG SDC - Discharge Diagnoses Current Active Problems: Current Active and Chronic Problems Chronic maxillary sinusitis (Chronic) Chronic ethmoidal sinusitis (Chronic) Hypertrophy of both inferior nasal turbinates (Chronic) You will use the following diet at home:: Regular Discharge Activity: Return to Normal Activity, May not drive while taking narcotic pain medications. Call your doctor if your incision/area has: Continuous Slow Oozing, Sudden Increased Bleeding Call your doctor if you observe: Fever of 101 or Higher, Uncontrolled pain Allergies/Adverse Reactions: Allergies celecoxib [From Celebrex] Allergy (Verified 12/02/17 14:22) Rash Penicillins [PCN] Allergy (Verified 12/02/17 14:22) Rash sulfamethoxazole [From Bactrim] Allergy (Verified 12/02/17 14:22) Other trimethoprim [From Bactrim] Allergy (Verified 12/02/17 14:22) Other Medications to take at Discharge Oxycodone HCl/Acetaminophen [Percocet 10-325 mg Tablet] 1 tablet PO Q6H PRN PRN 05/13/17 Primary Care Physician: Wing Gomez PA [Primary Care Provider] - Test Results: Test results from this visit will be discussed in further detail at your follow-up appointment, if applicable. Please Follow Up With: Dayne Bentley MD When: 5 days 12/06/17 1309 <Electronically signed by Dayne Bentley MD> Date Dayne Bentley MD CC: FELA Gomez ETHMOID TISSUE Observed: 12/06/2017 Status: F Source: [place] 10:50 AM [facility] REPOSITORY Patient: BRANDIE HURTADO : 1970 (47/F) Acct Num: [id number] Phys: Dayne Bentley MD Unit Num: [id number] Loc: [facility] Specimen: [id number] Received: 12/06/17 - 155 Spec Type: ETH TISS TISSUES TISSUES: A. Ethmoid sinus, NOS - RIGHT B. Ethmoid sinus, NOS - LEFT GROSS DESCRIPTION A - Received in fixative is one container labeled with the patient's name and designated right sinus contents. The specimen consists of multiple fragments of hemorrhagic soft tissue mixed with fragments of bone that in aggregate measure 5 x 3 x 0.3 cm. The entire specimen is submitted in two cassettes after decalcification. B - Received in fixative is one container labeled with the patient's name and designated left sinus contents. The specimen consists of multiple fragments of hemorrhagic soft tissue mixed with possible fragments of bone that in aggregate measure 2.5 x 1.5 x 0.2 cm. The entire specimen is submitted in one cassette after decalcification. / BUCK:raven 12/09/17 TC:3 CPT: 95775 x2, 17975 x2 HEADER OPERATION: Ethmoidectomy, antrostomy, submucous resection inferior turbinates PRE-OP DIAGNOSIS: Chronic ethmoidal sinusitis, incompetence of nasal valve, hypertrophy nasal turbinates TISSUE SUBMITTED: A Right sinus contents, B Left sinus contents MICROSCOPIC DESCRIPTION Slides are reviewed. MICROSCOPIC DIAGNOSIS A. Right sinus contents: Fragments of respiratory mucosa with chronic inflammation and bone. B. Left sinus contents: Fragments of respiratory mucosa with chronic inflammation and bone. SJ:raven 12/12/17 Signed Сергейluis Mcelroy 12/12/17 <signature on file> Performed By: #### PETH #### [facility] [address] [place], [place], [address] LIVER PROFILE Collected: 12/04/2017 Status: F Source: [place] 7:32 AM [facility] REPOSITORY TYPE CODE TESTS RESULT OUT OF RANGE REFERENCE UNITS LAB L501.1500 6.4-8.2 g/dL Normal T PROT 7.6 LAB L501.1800 3.2-5.0 g/dL Normal ALB 3.8 LAB L501.1950 2.2-4.2 g/dL Normal GLOB 3.8 LAB L501.4100 15-37 U/L Normal AST 18 LAB L501.4305 45-117 U/L Normal ALK P 73 LAB L501.4405 13-56 U/L Normal ALT 31 LAB L501.4600 0.20-1.00 mg/dL Normal T BILI 0.40 LAB L501.4700 0.00-0.30 mg/dL Normal D BILI 0.11 Performed By: #### L500.3400 #### [facility] [address] [place], [address] CBC-COMPLETE BLOOD CNT Collected: 12/04/2017 Status: F Source: [place] NO DIFF 7:32 AM [facility] REPOSITORY TYPE CODE TESTS RESULT OUT OF RANGE REFERENCE UNITS LAB L100.1000 4.4-11.0 K/mm3 Normal WBC 7.7 LAB L100.1200 4.2-5.4 M/mm3 Normal RBC 4.80 LAB L100.1300 12.0-15.0 g/dl Normal HGB 15.0 LAB L100.1400 37-47 % Normal HCT 45.3 LAB L100.1500 81-99 fL Normal MCV 94.4 LAB L100.1600 27.0-32.0 pg Normal MCH 31.3 LAB L100.1700 32-36 g/gl Normal MCHC 33.1 LAB L100.1810 11.6-14.6 % Normal RDW CV 13.1 LAB L100.1820 35.1-43.9 fl High RDW SD 44.3 LAB L100.1900 150-450 K/mm3 Normal PLT 296 LAB L100.2000 6.2-12.0 fl Normal MPV 9.9 Performed By: #### L100.0500 #### [facility] [address] [place], [address] PROTHROMBIN TIME W/INR Collected: 12/04/2017 Status: F Source: [place] 7:32 AM [facility] REPOSITORY TYPE CODE TESTS RESULT OUT OF RANGE REFERENCE UNITS LAB L300.4150 11.7-14.9 SECONDS Normal PROTIME 12.1 LAB L300.4200 Normal INR 0.9 Performed By: #### L300.3900, L300.4310 #### [facility] [address] [place], [place], [id number] PARTIAL THROMBOPLAST Collected: 12/04/2017 Status: F Source: LM TIME 7:32 AM [facility] REPOSITORY TYPE CODE TESTS RESULT OUT OF RANGE REFERENCE UNITS LAB L300.4310 24.1-36.2 Seconds Normal PTT 25.8 Performed By: #### L300.3900, L300.4310 #### [facility] [address] [place], [address] Observed: 12/04/2017 Status: F Source: LM CULTURE, URINE 7:32 AM [facility] REPOSITORY Urine Culture ORGANISM 1: Mixed Gram Positive Organisms [place] Count 1000-10,000 MIX CULTURE Mixed contaminants. Submit a new specimen if indicated. Performed By: #### M100.0650 #### [facility] [address] [place], [address] XR CHEST PA AND Observed: 11/03/2017 Status: F Source: [facility] 2:31 PM [place] ([place] REPOS[place]ORY CLINICAL HISTORY: Fever, cough, congestion. EXAMINATION: PA and lateral chest: 11/03/2017. COMPARISON: Portable chest 06/23/[address] [facility]. FINDINGS: There are multiple artifacts from patient's clothing. Visualized osseous structures, heart, mediastinum are normal. The aorta has normal contour. Lungs appear clear. There is no congestive heart failure, pneumothorax. IMPRESSION: No acute cardiopulmonary disease. CT NECK WITHOUT Observed: 11/03/2017 Status: F Source: [facility] 1:51 PM [facility] ([place] REPOSITORY EXAM: CT NECK WITHOUT CONTRAST CLINICAL STATEMENT: Fever, pain, and drainage down the neck. Evaluate for epiglottitis versus sinusitis. COMPARISON: None. TECHNIQUE: Multiple axial unenhanced CT images of the soft tissues of the neck were supplemented with 2-D coronal and sagittal reformations. Dose reduction techniques were achieved by using automated exposure control and/or adjustment of mA and/or kV according to patient size and/or use of iterative reconstruction technique. FINDINGS: Imaged intracranial structure details appear grossly unremarkable, as seen. There is evidence of bilateral cataract surgery. Mild mucosal thickening in ethmoid air cells. Small air-fluid level right transverse sinus. Mastoid air cells appear clear. The parapharyngeal fat and palliative senior np spaces appear symmetric. Parotid and submandibular glands appear symmetric. As seen, the epiglottis and aryepiglottic folds appear unremarkable. Vocal cords appear symmetric. No subglottic stenosis. Thyroid gland appears homogeneous. Calcific nodule in the left upper lobe. Partially calcified prevascular lymph node. No cervical chain adenopathy. No compression fracture is seen. There is mild disc space narrowing and endplate spur most pronounced at C4-C5 and C5-C6. Facet disease most pronounced at C2-C3. IMPRESSION: 1. The epiglottis appears normal. 2. Mild acute right maxillary sinus disease. 3. No cervical chain adenopathy. CT SINUSES WITHOUT Observed: 11/03/2017 Status: F Source: [facility] 1:51 PM [place] ([place] REPOSITORY EXAM: CT SINUSES WITHOUT CONTRAST CLINICAL STATEMENT: Fever and drainage. COMPARISON: None. TECHNIQUE: Spiral CT images of the facial bones without contrast. Dose reduction techniques were achieved by using automated exposure control and/or adjustment of mA and/or kV according to patient size and/or use of iterative reconstruction technique. FINDINGS: Mastoid air cells are grossly clear. There is mild to moderate right chronic sinusitis of the right maxillary sinus. Moderate bilateral ethmoid sinus mucosal thickening. No air- fluid levels to suggest acute sinusitis component. IMPRESSION: Moderate bilateral ethmoid and right maxillary chronic sinusitis. No acute component. RAPID STREP GROUP A Collected: 11/03/2017 Status: F Source: [facility] 1:27 PM [place] ([place] REPOSITORY TYPE CODE TESTS RESULT OUT OF REFERENCE UNITS RANGE LAB RSA NEGATIVE RAPID NEGATIVE STREP GROUP A Result Comment: STREP CULTURE TO FOLLOW TESTING PERFORMED BY JUDE Performed By: #### RSAT #### Testing performed at [address] [address] Observed: 11/03/2017 Status: F Source: [facility] THROAT CULTURE 1:27 PM [place]POS[place] SPECIMEN DESCRIPTION THROAT SWAB CULTURE USUAL OROPHARYNGEAL MIKE * Result Note: Testing performed at [place], [place] [address] * REPORT STATUS 11/05/2017 * Result Note: FINAL * Performed By: #### THRC #### Testing performed at [address] [address] Testing performed at [address] [address] ALLERGIES ALLERGIES DATE TYPE / CODE NAME / CODE REACTION SEVERITY SOURCE 05/16/2018 Drug Penicillins/Q96734 Rash Unknown [place] Allergy/416 0476(RXNORM) [facility]ly [facility] 212534([facility] ED CT) Repository 05/16/2018 Drug sulfamethoxazole/F Other Unknown [place] Allergy/416 [id number](RXNORM) [facility]ly [facility] 428624([facility] ED CT) Repository 05/16/2018 Drug trimethoprim/F0060 Other Unknown [place] Allergy/416 80188(RXNORM) [facility] 138732([facility] ED CT) Repository 05/16/2018 Drug celecoxib/[id number] Rash Unknown Lm Allergy/416 31(RXNORM) Community 824458([facility] ED CT) Repository 05/13/2017 Drug SULFA (SULFONAMIDE Other [facility] Class/87880 ANTIBIOTICS) Three Repository 1003(SNOMED CT) 01/10/2015 Drug ADHESIVE [facility] Class/47914 Three Repository 1003(SNOMED CT) 01/10/2015 DRUG CELECOXIB [facility] INGREDI/419 Three Repository 693345(SNOM ED CT) 01/10/2015 Drug PENICILLINS [facility] Class/54722 Three Repository 1003(SNOMED CT) 01/10/2015 DRUG VANCOMYCIN [facility] INGREDI/419 Three Repository [id number](SNOM ED CT) ENCOUNTERS ENCOUNTERS ADMIT/DISCHARGE ACCOUNT NUMBER ADMITTING ENCOUNTER LOCATION SOURCE CLASS 05/20/2018/05/20/19 [id number] Ambulatory Building:[place] [address] I Three Repository 05/20/2018/05/20/19 [id number] Ambulatory Building:[place] [address] G Three Repository 05/20/2018/05/20/19 [id number] Ambulatory Building:[place] [address] G Three Repository 05/16/2018/05/16/19 [id number] Ambulatory BMSBuilding: [address] Repository 05/15/2018 [id number] Ambulatory [facility] ding:MRI Repository 05/15/2018 [id number] Ambulatory [facility] ding:MRI Repository 05/12/2018/05/12/19 [id number] Emergency [address] [place] [address] DRoom: System Social[employer]atyCO) A848Oes: Repository E014 05/09/2018/05/09/19 [id number] Ambulatory BMSBuilding: [address] Repository 05/08/2018/05/08/19 [id number] Emergency [address] ding:ED Repository 05/02/2018/05/02/19 [id number] Ambulatory Building:[place] [address] I Three Repository 03/11/2018/03/11/20 [id number] Ambulatory Building:[place] [address] I Three Repository 02/24/2018 [id number] Ambulatory [address] [place] [address] [employer] [facility] ([place]) Repository 02/20/2018 [id number] Ambulatory [facility] ding:OPBI Repository 01/24/2018 [id number] Ambulatory Buildin [place] ([place] Repository 01/22/2018 [id number] Ambulatory [facility] ding:EMPH Repository 01/10/2018 [id number] Ambulatory Building:[facility] Three Repository 01/06/2018/01/07/20 [id number] Ambulatory Building:[facility] I Three Repository 12/06/2017/12/07/19 [id number] Ambulatory [address] ding:[facility] Repository 12/04/2017 [id number] Ambulatory BMSBuilding: [facility] Repository 11/05/2017/11/06/19 [id number] Ambulatory Building:[facility] 18 I Three Repository 11/04/2017 [id number] Ambulatory Buildin [facility] ([place]) Repository 11/03/2017/11/04/19 [id number] [place] [address] DRoom[place] System ([place] DLI00Iod: Repository EFT19 09/28/2017/09/29/19 [id number] [address] [place] [address] DRoom: [place] ([place]) EOX06Kth: Repository EFT20 09/05/2017/09/06/19 [id number] Ambulatory Building:[place] [address] I Three Repository 07/16/2017 [id number] Ambulatory Building:[facility] I Three Repository 07/11/2017/07/12/19 [id number] Ambulatory Building:[place] [address] I Three Repository 06/26/2017 [id number] Ambulatory Buildin [facility] ([place]) Repository 06/26/2017 [id number] Ambulatory BuildinS [employer] [facility] ([place]) Repository PAYERS PAYERS ENCOUNTER GUARANTOR PAYER SUBSCRIBER SOURCE 05/20/2018 BRANDIE A [facility] TURNERDOB: Insurance:MMOPoljordan TURNERDOB: Three Repository Number: [id number] SENTHIL [id number] SENTHIL [place], Date:2589-76-02JT [place], [place] [address] [address]Dwn: [address]UM: [phone]: [phone] () () 05/20/2018 [id number] [facility] : Insurance:WORKER'S TURNERDOB: Three Repository COMPPolicy Number: [id number] SENTHIL [id number] SENTHIL [facility], Date:[place], [place] [address]67ICFUKPAR, [facility] [address]Cdd: [id number]: [phone]: [phone] () () 05/20/2018 [id number]- Primary BRANDIE A [facility] : Insurance:WORKER'S TURNERDOB: Three Repository COMPPolicy Number: [id number] SENTHIL [id number] SENTHIL [facility], Date:[place], [place] [address]IQEMNHUM, [facility] [address]Xra: [address]SP: [phone]: [phone] () (HP) 05/16/2018 BRANDIE A Primary BRANDIE A Lm [id number] SENTHIL Insurance:OB TURNERDOB: [facility] [id number] Hospital [address]Fxr: (567) Number: Repository () [id number] Date:5525-22-86SJ [address]FU[address], [place] [address]BN: 05/16/2018 Secondary NOT GIVENUNK [place] Insurance:SELF PAY [facility] Number: Effective Repository Date:2018-05-16 05/15/2018 BRANDIE A Primary BRANDIE A [place] [id number] SENTHIL Insurance:OB TURNERDOB: [facility] [id number] Hospital [address]Weq: (567) Number: Repository 307 () [id number] Date:4225-70-57SX [address], [place] [address]SX: 05/15/2018 Secondary NOT GIVENUNK Lm Insurance:SELF PAY [facility] Number: Effective Repository Date:2018-05-13 05/15/2018 BRANDIE A Primary BRANDIE A [place] [id number] SENTHIL Insurance:OB TURNERDOB: [facility] [id number] [address]Tel: (567) Number: Repository [phone] () [id number] Date:3650-80-07XU [facility] [address]95[address]OYCZVWYP, [place] [address]OC: 05/15/2018 Secondary NOT GIVENUNK [place] Insurance:SELF PAY [facility] Hospital Number: Effective Repository Date:2018-05-12 05/09/2018 BRANDIE A Primary BRANDIE A Lm [id number] SENTHIL Insurance:[facility] TURNERDOB: [facility] [id number] [place] [address]Tel: (567) Number: Repository [phone] () [id number] Date:6393-75-71PZ [facility] 671418TCLMRERI, [place] [address]UE: 05/09/2018 Secondary NOT GIVENUNK [place] Insurance:SELF PAY [facility] Number: Effective Repository Date:2018-05-09 05/08/2018 BRANDIE A Primary BRANDIE A [place] [id number] SENTHIL [facility] [id number] [place] [id number]: (567) Number: Repository [phone] () [id number] Date:8714-48-24MH [facility] 215137PCEFSTDT, [place] [address]GX: 05/08/2018 Secondary BRANDIE A [place] Insurance:[facility] TURNERDOB: [facility] [id number] Hospital Number: Repository [id number] Date:8019-89-67UN [address]EOZNNUHPW, [place] [address]UW: CHECK WEBSITE 05/08/2018 Tertiary NOT GIVENUNK [place] Insurance:SELF PAY [facility] Hospital Number: Effective Repository Date:2018-05-08 05/02/2018 BRANDIE A Primary BRANDIE A [facility] TURNERDOB: Insurance:MMOPolicy TURNERDOB: Three Repository Number: [id number] SENTHIL [id number] SENTHIL [facility], Date:0504-07-03IC [address] [address]Ypf: [phone]: [phone]: [phone] (HP) (HP) 03/11/2018 BRANDIE A Primary BRANDIE A [facility] TURNERDOB: Insurance:MMOPolicy TURNERDOB: Three Repository Number: [id number] SENTHIL [id number] SENTHIL [facility], Date:6844-09-82CU [address] [address]Krp: [phone]: [phone]: [phone] (HP) (HP) 02/20/2018 BRANDIE A Primary Insurance:[facility] BRANDIE A [place] [id number] SENTHIL [facility] TURNERDOB: [facility] [id number] Hospital [address]Xbw: (567) Number: Repository () [id number] Date:4447-95-38QJ [facility] [address]67JDKNATOCF, [place] [address]DK: CHECK WEBSITE 02/20/2018 Secondary NOT GIVENUNK Lm Insurance:SELF PAY [facility] Number: Effective Repository Date:2018-02-18 01/22/2018 BRANDIE A Primary NOT GIVENUNK [place] [id number] SENTHIL Insurance:SELF PAY [facility] [id number]: (567) Number: Effective Repository [phone] (HP) Date:2018-01-22 01/10/2018 BRANDIE A Primary BRANDIE A [facility] TURNERDOB: Insurance:ELENI TURNERDOB: Three Repository [facility] [id number] SENTHIL Number: S[place]IL [place], [id number] [place], [place] Date:2001-12-28 [place] [address]Dkx: 7939-89-66UC [address] [address]Fto: [facility], [place] (HP) [phone]: [phone] (HP) [phone] 01/10/2018 Secondary BRANDIE A [facility] TURNERD[facility]: Three Repository [facility] [id number] Number: SENTHIL [id number] [facility], Date:2001-12-28 - [place] 8897-67-02YS [address] [address]Nwq: [place], [place] [address]LN: [phone] (HP) [phone] 01/10/2018 Tertiary BRANDIE A [facility] Insurance:MEDICAIDPol TURNERDOB: Three Repository icy Number: [id number] SENTHIL Date:2015-04-29 - [facility], 7670-75-16TZ [address] [place] [address] [address]Tkp: [address]DE: [phone] (HP) 01/10/2018 Tertiary [facility] Insurance:MMOPoly TURNERDOB: Three Repository Number: [id number] SENTHIL Date:9742-39-[address] [address]TL: [phone]: [phone] ( () 01/06/2018 BRANDIE A Primary BRANDIE A [facility] TURNERDOB: Insurance:MMOPolicy TURNERDOB: Three Repository Number: [id number] SENTHIL [id number] [facility], Date:6415-64-96JS [address] [address]Bfd: [address]IS: [phone]: [phone] (HP) (HP) 12/06/2017 BRANDIE A Primary Insurance:[facility] BRANDIE A Lm [id number] [facility] TURNERDOB: [facility] [id number] Hospital [address]Wcv: (567) Number: Repository () [id number] Date:5483-88-96VQ [address] [address]ZP: CHECK WEBSITE 12/06/2017 Secondary NOT GIVENUNK Lm Insurance:SELF PAY [facility] Number: Effective Repository Date:2017-11-28 12/04/2017 BRANDIE A Primary Insurance:[facility] BRANDIE A [place] [id number] [facility] TURNERDOB: [facility] [id number] Hospital [address]Buw: (567) Number: Repository () [id number] Date:4642-67-94JE [address] [address]YD: CHECK WEBSITE 12/04/2017 Secondary NOT GIVENUNK [place] Insurance:SELF PAY [facility] Number: Effective Repository Date:2017-12-04 11/05/2017 BRANDIE A Primary BRANDIE A [facility] TURNERDOB: [facility] Three Repository Number: [id number] [facility] [id number] [facility], Date:4534-51-62LB [place] [address] [place] [address]Wdh: [address]NO: [phone]: [phone] (HP) (HP) 09/05/2017 BRANDIE A Primary BRANDIE A [facility] TURNERDOB: Insurance:MMOPolicy TURNERDOB: Three Repository Number: [id number] SENTHIL [id number] [place], Date:5086-35-64GP [place], [place] [address] [address]Air: [address]KF: [phone]: [phone] (HP) (HP) 07/16/2017 BRANDIE A Primary BRANDIE A [facility] TURNERDOB: Insurance:BUCKE TURNERDOB: Three Repository [facility] [id number] SENTHIL Number: [place], [id number] [place], [place] Date:2001-12-28 [place] [address]Vdt: 4450-70-21LW [facility] [address]Mlp: [address] [place] [address] (HP) [address]QK: [phone] (HP) [phone] 07/16/2017 Secondary BRANDIE A [facility] Insurance:MEDICAIDPol TURNERDOB: Three Repository icy Number: [id number] [place] Date:2015-04-29 - [place]IE, 1778-20-46DG [address] [place] [address] [address]Bxy: [address]CQ: [phone] (HP) 07/16/2017 Tertiary BRANDIE A [facility] Insurance:MMOPolicy TURNERDOB: Three Repository Number: [id number] [place] Date:8389-56-97NG ROLO KILLAWOGMATILDAFORMERLY [facility], [facility], [address] [address]VB: [phone]: [phone] (HP) 07/11/2017 BRANDIE A Primary BRANDIE A [facility] TURNERDOB: Insurance:MMOPolicy TURNERDOB: Three Repository Number: [id number] S[place] [id number] [place], Date:0794-71-43PC [place], [place] [address] [address]Lnt: [address]AD: [phone]: [phone] (HP) (HP)
== END ==
PROVIDERS: Family Provider Physician Assistant; PCP Physician Assistant; Referring Provider Physician Assistant Surgical; Visit Provider Physician Assistant Surgical
DX: S16.1XXA Strain of muscle, fascia and tendon at neck level, initial encounter (principal); S50.12XA Contusion of left forearm, initial encounter
CPT/HCPCS: 72141

== ENCOUNTER → 2018-08-20 | Outpatient (CLI) | payer OTHER, SELFPAY ==
[2018-05-26 17:05] VITALS: BMI 29.2
--- NOTE | 2018-08-20 14:19 | NEURO ---
NCS and/or EMG Patient Report Ordering Doctor: Bereket Ash DATE OF SERVICE: 08/20/18 Cathy Merino is a 48-year-old female presents for electrodiagnostic testing of the left upper limb. She reports sustaining a fall several weeks ago and sustaining injury to the left shoulder. She reports intermittent numbness and tingling in the hand. Electrodiagnostic findings: Left median motor nerve demonstrates normal distal latency, amplitude and conduction velocity. Normal left ulnar motor response. Normal median and ulnar F waves. Sensory responses within normal limits. Needle EMG testing shows no evidence of denervation in muscles tested. Motor unit action potentials of normal amplitude and duration. Electrodiagnostic impression: This is a normal electrodiagnostic study of the left upper limb. There is no electrodiagnostic evidence for peripheral neuropathy or cervical radiculopathy. If there are any further questions, please do not hesitate to contact me.
== END | disposition home or self-care (01) ==
LOC: PSN 13:31
PROVIDERS: Family Provider Physician Assistant; PCP Physician Assistant; Referring Provider Physician Assistant Surgical; Visit Provider Physician Assistant Surgical
DX: S16.1XXA Strain of muscle, fascia and tendon at neck level, initial encounter (principal)
CPT/HCPCS: 95886; 95910